=== PATIENT | female | born 1995 | race Caucasian/White ===

== ENCOUNTER 2019-05-04 16:41 | Emergency (ER) | payer OTHER, SELFPAY ==
[2019-05-04 17:44] LABS: Barbiturates NEGATIVE (NEGATIVE); Benzodiazepines NEGATIVE (NEGATIVE); Cocaine NEGATIVE (NEGATIVE); METHAMPHETAM NEGATIVE (NEGATIVE); Methadone NEGATIVE (NEGATIVE); Opiates NEGATIVE (NEGATIVE); Phencyclidine NEGATIVE (NEGATIVE); THC Cannibis NEGATIVE (NEGATIVE)
[2019-05-04 17:50] LABS: Absolute Lymphocytes (CBC) 2.9 K/uL (0.7-4.9); Basophils % 0.8 % (0-1.3); Eosinophils % 0.6 % (0-4.4); Hematocrit 40.1 % (36.0-45.0); Lymphocytes % 29.2 % (15.3-44.8); MPV 7.6 fL (7.6-11.3); Monocytes % 5.7 % (3.3-12.3); RBC Red Blood Cell Count 4.26 M/uL (3.86-4.86)
[2019-05-04 17:59] LABS: Protime INR 1.07
[2019-05-04 18:02] LABS: Urine Blood TRACE (NEG); Urine Glucose NEGATIVE (NEG); Urine Protein 2+ (NEG); Urine Specific Gravity >1.030 (1.005-1.030)
[2019-05-04 18:03] LABS: Urine Specific Gravity >1.030 (1.005-1.030)
[2019-05-04 18:11] LABS: ALT/SGPT 19 U/L (12-78); AST/SGOT 20 U/L (15-37); Albumin 4.4 g/dL (3.4-5.0); Alkaline Phosphatase 83 U/L (45-117); BUN Blood Urea Nitrogen 10 mg/dL (7-18); Bicarbonate 24 mmol/L (21-32); Bilirubin Direct 0.1 mg/dL (0-0.2); Bilirubin Total 0.4 mg/dL (0.2-1.0); Glucose Level 99 mg/dL (74-106); Potassium 3.5 mmol/L (3.5-5.1); Protein, Total 8.2 g/dL (6.4-8.2); Sodium Level 141 mmol/L (136-145)
[2019-05-04] MEDS ORDERED: DIAZEPAM 2 MG TABLET ONE (19:34)
--- NOTE | 2019-05-04 20:07 | ER ---
Nurse's Notes [facility] Name: Charo Flood Age: 24 yrs Sex: Female : 1995 Arrival Date: 05/04/2019 Time: 16:42 Bed 17 Private MD: Diagnosis: Acute stress reaction Presentation: 05/04 17:00 Presenting complaint: "I am feeling depressed and anxious and like I am a burden on my hb family, I am not feeling suicidal right now but I think I need help to get leveled out before it gets that bad.' Denies SI/HI at this time. Reports one previous suicide attempts 6 yrs ago by overdose. Transition of care: patient was not received from another setting of care. Onset of symptoms was May 04, 2019. Risk Assessment: Do you want to hurt yourself or someone else? Patient reports no desire to harm self or others. Initial Sepsis Screen: Does the patient meet any 2 criteria? No. Patient's initial sepsis screen is negative. Does the patient have a suspected source of infection? No. Patient's initial sepsis screen is negative. Care prior to arrival: None. 17:00 Method Of Arrival: Ambulatory 17:00 Acuity: LEMUEL 3 hb Historical: - Allergies: 17:06 Morphine (Vomiting); hb - PMHx: 17:06 Depression; Anxiety; hb - PSHx: 17:06 hand; hb - Immunization history:: Adult Immunizations up to date. - Social history:: Smoking status: Patient uses tobacco products, smokes one pack cigarettes per day. Patient/guardian denies using alcohol, street drugs. - Ebola Screening: : No symptoms or risks identified at this time. Screenin:20 Abuse screen: Denies threats or abuse. Nutritional screening: No deficits noted. em Tuberculosis screening: No symptoms or risk factors identified. Fall Risk None identified. Assessment: 17:20 General: Appears in no apparent distress. comfortable, Behavior is calm, cooperative, em reports feeling anxious, has been smoking K2 (synthetic marijuana) but not for 2 days, denies being SI/HI, wants help before she becomes suicidal . Pain: Denies pain. Neuro: Level of Consciousness is awake, alert, obeys commands, Oriented to person, place, time, situation. Cardiovascular: Capillary refill < 3 seconds Patient's skin is warm and dry. Respiratory: Airway is patent Respiratory effort is even, unlabored, Respiratory pattern is regular, symmetrical. GI: Abdomen is flat. Derm: Skin is intact, is healthy with good turgor, Skin is pink, warm \\T\\ dry. Musculoskeletal: Capillary refill < 3 seconds, Range of motion: intact in all extremities. 17:40 Reassessment: Patient appears in no apparent distress at this time. I agree with above iw assessment by Mayo Ziegler LVN. 18:20 Reassessment: Patient appears in no apparent distress at this time. Patient and/or em family updated on plan of care and expected duration. Pain level reassessed. Patient is alert, oriented x 3, equal unlabored respirations, skin warm/dry/pink. 19:46 Reassessment: Patient is alert, oriented x 3, equal unlabored respirations, skin ak1 warm/dry/pink. General: Appears in no apparent distress. comfortable, Behavior is calm, cooperative. Pain: Denies pain. Neuro: Level of Consciousness is awake, alert, obeys commands, Oriented to person, place, time, situation. Cardiovascular: No deficits noted. Respiratory: No deficits noted. GI: No signs and/or symptoms were reported involving the gastrointestinal system. : No signs and/or symptoms were reported regarding the genitourinary system. EENT: No signs and/or symptoms were reported regarding the EENT system. Derm: No signs and/or symptoms reported regarding the dermatologic system. Musculoskeletal: No signs and/or symptoms reported regarding the musculoskeletal system. 20:02 Reassessment: pt stated the Valium helped her anxiety. pt stated she feels comfortably ak1 going home with her who is at the bedside. pt again denies SI/HI. Psych: 19:47 Subjective: Patient's mood is sad. Objective: Patient is cooperative. Suicide Risk ak1 Assessment: Sad Person Scale: Sex of patient: Female: Score 0 points. Age of patient: Score 1 point if patient 15-34. Depression: Score 1 point if signs of depression are present. Previous Attempt: Score 1 point if patient has previously attempted suicide. Substance Abuse: Score 1 point if patient abuses alcohol or drugs. Rational Thinking: Score 0 point if patient has rational thinking. Social Support: Score 0 if social support is present/available. Organized Plan: Score 0 if patient did not have an organized plan in place. Vital Signs: 16:59 BP 140 / 94; Pulse 87; Resp 16; Temp 98.2; Pulse Ox 100% on R/A; Weight 52.16 kg; hb Height 5 ft. 2 in. (157.48 cm); Pain 0/10; 18:20 BP 132 / 78; Pulse 78; Resp 16; Pulse Ox 99% on R/A; em 20:03 BP 117 / 75; Pulse 75; Resp 16; Temp 97.9(O); Pulse Ox 100% on R/A; ag4 16:59 Body Mass Index 21.03 (52.16 kg, 157.48 cm) hb ED Course: 16:42 Patient arrived in ED. mr 17:03 Triage completed. hb 17:03 Arm band placed on. EKG completed in triage. Results shown to MD. EKG completed in hb triage. Results shown to MD. 17:08 David Gray, SENIOR IOS DEVELOPER is PHCP. pm1 17:08 Cameron Kent MD is Attending Physician. pm1 17:11 Mayo Ziegler LVN is Primary Nurse. em 17:20 Patient has correct armband on for positive identification. Bed in low position. Call em light in reach. Side rails up X2. 18:03 Initial lab(s) drawn, by me, sent to lab. Urine collected: clean catch specimen, jerrica cloudy, katy colored. Inserted saline lock: 22 gauge in right antecubital area, using aseptic technique. Blood collected. 20:03 No provider procedures requiring assistance completed. ak1 20:06 IV discontinued, intact, bleeding controlled, No redness/swelling at site. Pressure ak1 dressing applied. Administered Medications: 19:25 Drug: Valium 2 mg Route: PO; ak1 20:07 Follow up: Response: No adverse reaction; Anxiety decreased ak1 Outcome: 20:01 Discharge ordered by MD. pm1 20:06 Discharged to home ambulatory, with family. ak1 20:06 Condition: good 20:06 Discharge instructions given to patient, family, Instructed on discharge instructions, follow up and referral plans. no drinking with medication, no driving heavy equipment, medication usage, safe sex practices, control, Demonstrated understanding of instructions, follow-up care, medications, Prescriptions given X 1. 20:07 Patient left the ED. ak1 Signatures: Marvin Adams jb1 Teresita Tom mr Ziegler, Mayo, POLICEWOMAN POLICEWOMAN Kiah Castro, RN RN iw [place], [place], RN RN ak1 David Gray, SENIOR IOS DEVELOPER SENIOR IOS DEVELOPER [email or web address] Yesi Bragg, RN RN shefali Limon, Micky ag4
--- NOTE | 2019-05-04 20:07 | EDPHYS ---
Physician Documentation [facility] Name: Charo Flood Age: 24 yrs Sex: Female : 1995 Arrival Date: 05/04/2019 Time: 16:42 Bed 17 Private MD: ED Physician Cameron Kent HPI: 05/04 17:24 This 24 yrs old Female presents to ER via Ambulatory with complaints of Psych pm1 Problem. 17:24 The patient presents to the emergency department with anxiety, depression. pm1 17:24 Onset: The symptoms/episode began/occurred 3 day(s) ago. Past psychiatric history: pm1 Psychiatric medications include: stopped taking Lexapro about 1 year ago. [place] good with CBT but has not gone to it about 1 year ago, the patient has a previous inpatient psychiatric history, 6 year(s) ago. Associated signs and symptoms: The patient has no apparent associated signs or symptoms, Pertinent positives; anxiety, depression, uses K2 synthetic marijuana, Pertinent negatives: hallucinations, homicidal ideation, suicide ideation. Severity of symptoms: in the emergency department the symptoms are worse. The patient has not recently seen a physician. Historical: - Allergies: 17:06 Morphine (Vomiting); hb - PMHx: 17:06 Depression; Anxiety; hb - PSHx: 17:06 hand; hb - Immunization history:: Adult Immunizations up to date. - Social history:: Smoking status: Patient uses tobacco products, smokes one pack cigarettes per day. Patient/guardian denies using alcohol, street drugs. - Ebola Screening: : No symptoms or risks identified at this time. ROS: 17:24 Constitutional: Negative for fever, chills, and weight loss, Eyes: Negative for injury, pm1 pain, redness, and discharge, ENT: Negative for injury, pain, and discharge, Neck: Negative for injury, pain, and swelling, Cardiovascular: Negative for chest pain, palpitations, and edema, Respiratory: Negative for shortness of breath, cough, wheezing, and pleuritic chest pain, Abdomen/GI: Negative for abdominal pain, nausea, vomiting, diarrhea, and constipation, Back: Negative for injury and pain, MS/Extremity: Negative for injury and deformity, Skin: Negative for injury, rash, and discoloration. 17:24 Neuro: Negative for headache, weakness, numbness, tingling, and seizure. 17:24 Psych: Positive for anxiety, depression, Negative for auditory hallucinations, visual hallucinations, suicidal ideation. Exam: 17:24 Constitutional: This is a well developed, well nourished patient who is awake, alert, pm1 and in no acute distress. Head/Face: Normocephalic, atraumatic. Eyes: Pupils equal round and reactive to light, extra-ocular motions intact. Lids and lashes normal. Conjunctiva and sclera are non-icteric and not injected. Cornea within normal limits. Periorbital areas with no swelling, redness, or edema. ENT: Nares patent. No nasal discharge, no septal abnormalities noted. Tympanic membranes are normal and external auditory canals are clear. Oropharynx with no redness, swelling, or masses, exudates, or evidence of obstruction, uvula midline. Mucous membranes moist. Neck: Trachea midline, no thyromegaly or masses palpated, and no cervical lymphadenopathy. Supple, full range of motion without nuchal rigidity, or vertebral point tenderness. No Meningismus. Chest/axilla: Normal chest wall appearance and motion. Nontender with no deformity. No lesions are appreciated. Cardiovascular: Regular rate and rhythm with a normal S1 and S2. No gallops, murmurs, or rubs. Normal PMI, no JVD. No pulse deficits. Respiratory: Lungs have equal breath sounds bilaterally, clear to auscultation and percussion. No rales, rhonchi or wheezes noted. No increased work of breathing, no retractions or nasal flaring. Abdomen/GI: Soft, non-tender, with normal bowel sounds. No distension or tympany. No guarding or rebound. No evidence of tenderness throughout. Back: No spinal tenderness. No costovertebral tenderness. Full range of motion. Skin: Warm, dry with normal turgor. Normal color with no rashes, no lesions, and no evidence of cellulitis. MS/ Extremity: Pulses equal, no cyanosis. Neurovascular intact. Full, normal range of motion. 17:24 Neuro: Orientation: is normal, Motor: is normal, moves all fours, Sensation: is normal, no obvious gross deficits. 17:24 Psych: Behavior/mood is pleasant, cooperative, Affect is calm, Oriented to person, place, time, Patient has no thoughts/intents to harm self or others. Delusions/hallucinations are not present. Vital Signs: 16:59 BP 140 / 94; Pulse 87; Resp 16; Temp 98.2; Pulse Ox 100% on R/A; Weight 52.16 kg; hb Height 5 ft. 2 in. (157.48 cm); Pain 0/10; 18:20 BP 132 / 78; Pulse 78; Resp 16; Pulse Ox 99% on R/A; em 20:03 BP 117 / 75; Pulse 75; Resp 16; Temp 97.9(O); Pulse Ox 100% on R/A; ag4 16:59 Body Mass Index 21.03 (52.16 kg, 157.48 cm) hb MDM: 17:11 Patient medically screened. pm1 19:25 Data reviewed: vital signs. Data interpreted: Pulse oximetry: on room air is 99 %. pm1 Interpretation: normal. Counseling: I had a detailed discussion with the patient and/or guardian regarding: the historical points, exam findings, and any diagnostic results supporting the discharge/admit diagnosis, lab results, radiology results, the need for outpatient follow up, a psychiatrist, to return to the emergency department if symptoms worsen or persist or if there are any questions or concerns that arise at home. 05/04 17:18 Order name: Acetaminophen; Complete Time: 18:44 pm1 05/04 17:18 Order name: Basic Metabolic Panel; Complete Time: 18:44 pm1 05/04 17:18 Order name: CBC with Diff; Complete Time: 18:44 pm1 05/04 17:18 Order name: ETOH Level; Complete Time: 18:44 pm1 05/04 17:18 Order name: Hepatic Function; Complete Time: 18:44 pm1 05/04 17:18 Order name: PT-INR; Complete Time: 18:44 pm1 05/04 17:18 Order name: Urine Test (obtain specimen); Complete Time: 18:03 pm1 05/04 17:18 Order name: Ptt, Activated; Complete Time: 18:44 pm1 05/04 17:18 Order name: Salicylate; Complete Time: 18:44 pm1 05/04 17:18 Order name: Urine Drug Screen; Complete Time: 17:59 pm1 05/04 17:18 Order name: EKG; Complete Time: 17:20 pm1 05/04 17:26 Order name: Urine --Ancillary (enter results); Complete Time: 18:05 [facility] 05/04 17:45 Order name: Urine Dipstick--Ancillary (enter results); Complete Time: 18:05 [facility] 05/04 17:18 Order name: EKG - Nurse/Tech; Complete Time: 18:03 pm1 05/04 17:18 Order name: IV Saline Lock; Complete Time: 18:03 pm1 05/04 17:18 Order name: Labs collected and sent; Complete Time: 18:03 pm1 05/04 17:18 Order name: Urine Dipstick-Ancillary (obtain specimen); Complete Time: 18:03 pm1 EC:54 Rate is 64 beats/min. Rhythm is regular, Sinus Rhythm with 1st degree heart block. No Q pm1 waves. T waves are Normal. No ST changes noted. Clinical impression: 1st degree heart block. Administered Medications: 19:25 Drug: Valium 2 mg Route: PO; ak1 20:07 Follow up: Response: No adverse reaction; Anxiety decreased ak1 Disposition: 05/04/19 20:01 Discharged to Home. Impression: Acute stress reaction. - Condition is Stable. - Discharge Instructions: Stress and Stress Management. - Prescriptions for Valium 2 mg Oral Tablet - take 1 tablet by ORAL route every 8 hours As needed; 6 tablet. - Medication Reconciliation Form, Thank You Letter, Antibiotic Education, Prescription Opioid Use form. - Follow up: Private Physician; When: 2 - 3 days; Reason: Recheck today's complaints, Continuance of care, Re-evaluation by your physician. Follow up: Emergency Department; When: As needed; Reason: Worsening of condition. - Problem is new. - Symptoms have improved. Addendum: 05/09/2019 16:37 Co-signature as Attending Physician, Cameron Kent MD I agree with the assessment and c tamez plan of care. Signatures: Dispatcher [employer] EDIA Cameron Kent MD MD cha Krenek, Amber, RN RN ak1 David Gray, ABDIEL PIT CRANE OPERATOR pm1 Yesi Bragg, ANDERSON RN Corrections: (The following items were deleted from the chart) 05/04 20:07 20:01 05/04/2019 20:01 Discharged to Home. Impression: Acute stress reaction. Condition ak1 is Stable. Discharge Instructions: Stress and Stress Management. Prescriptions for Valium 2 mg Oral Tablet - take 1 tablet by ORAL route every 8 hours As needed; 20 tablet. and Forms are Medication Reconciliation Form, Thank You Letter, Antibiotic Education, Prescription Opioid Use. Follow up: Private Physician; When: 2 - 3 days; Reason: Recheck today's complaints, Continuance of care, Re-evaluation by your physician. Follow up: Emergency Department; When: As needed; Reason: Worsening of condition. Problem is new. Symptoms have improved. pm1
[2019-05-04 20:37] VITALS: BP 117/75; TEMP 97.9; O2SAT 100
--- NOTE | 2019-05-06 08:45 | EKG ---
Test Date: 2019-05-04 Test Time: 17:44:08 Wide Area Network Engineer: WHITNEY MEASUREMENT RESULTS: Intervals: Rate: 64 UT: 236 QRSD: 72 QT: 386 QTc: 398 Latta: P: 39 UT: 236 QRS: 77 T: 39 INTERPRETIVE STATEMENTS: Sinus rhythm with 1st degree AV block Otherwise normal ECG Compared to ECG 04/07/2015 16:20:23 First degree AV block now present Electronically Signed On 05-06-19 08:42:39 CDT by Osei Yung
== END 2019-05-04 20:07 | disposition home or self-care (01) ==
LOC: ER 16:41
DX: F43.0 Acute stress reaction (principal); F32.9 Major depressive disorder, single episode, unspecified; F17.210 Nicotine dependence, cigarettes, uncomplicated; Z88.5 Allergy status to narcotic agent
CPT/HCPCS: 36415; 80048; 80076; 80307; 80320; 80329; 81003; 81025; 85025; 85610; 85730; 93005; 99284

== ENCOUNTER 2019-09-16 23:13 | Emergency (ER) | payer SELFPAY ==
--- OUTSIDE RECORDS SUMMARY | 2019-09-16 23:15 | XMS REPORT ---
:1995 [facility] Organization [facility] Address [address] [place] [address] Care Team Providers Name Role Phone Unavailable Unavailable Unavailable Payers Payer Name Policy Type Policy Number Effective Date Expiration Date Problems This patient has no known problems. Allergies, Adverse Reactions, Alerts Allergy Allergy Status Severity Reaction(s) Onset Inactive Treating Comments Name Type Date Date Clinician morphine DA Active MO 2019-07 00:00:0 0 Medications This patient has no known medications. Results Test Description Test Time Test Comments Text Results Atomic Results Result Comments BASIC METABOLIC PANEL 2019-08-02 04:11:00 Test Item Value Reference Range Comments SODIUM (test code=NA) 140 mmol/L 134-147 POTASSIUM (test code=K) 4.2 mmol/L 3.4-5.0 CHLORIDE (test code=CL) 108 mmol/L 100-108 CARBON DIOXIDE (test code=CO2) 28 mmol/L 21-32 ANION GAP (test code=GAP) 4.0 GAP calc 4.0-15.0 GLUCOSE (test code=GLU) 87 MG/DL 70-110 BLOOD UREA NITROGEN (test code=BUN) 6 MG/DL 7-18 GLOMERULAR FILTRATION RATE (test code=GFR) >=60 max estimate estGFR >60 CREATININE (test code=CREAT) 0.6 MG/DL 0.6-1.0 CALCIUM (test code=CA) 8.7 MG/DL 8.5-10.1 CREATINE KINASE (CK)2019-08-02 04:11:00 Test Item Value Reference Range Comments CREATINE KINASE (CK) (test code=CK) 754 Unit/L 26-192 CBC W/AUTO [id number] 03:59:00 Test Item Value Reference Range Comments WHITE BLOOD CELL (test code=WBC) 9.1 K/mm3 3.5-11.0 RED BLOOD CELL (test code=RBC) 3.53 M/mm3 4.70-6.10 HEMOGLOBIN (test code=HGB) 11.2 G/DL 10.4-14.9 HEMATOCRIT (test code=HCT) 33.7 % 31.5-44.1 MEAN CELL VOLUME (test code=MCV) 95.5 Fl 84.5-98.6 MEAN CELL HGB (test code=MCH) 31.7 pg 27.0-34.2 MEAN CELL HGB CONCETRATION (test code=MCHC) 33.2 G/DL 31.5-34.0 RED CELL DISTRIBUTION WIDTH (test code=RDW) 13.5 SD 11.5-14.5 PLATELET COUNT (test code=PLT) 345.0 K/mm3 150-450 MEAN PLATELET VOLUME (test code=MPV) 9.20 fL 7.0-10.5 NEUTROPHIL % (test code=NT%) 54.5 % 40-76 LYMPHOCYTE % (test code=LY%) 35.1 % 20.5-51.1 MONOCYTE % (test code=MO%) 8.7 % 1.7-9.3 EOSINOPHIL % (test code=EO%) 1.4 % 0.0-6.0 BASOPHIL % (test code=BA%) 0.3 % 0.0-2.0 NEUTROPHIL # (test code=NT#) 4.94 K/mm3 1.8-7.6 LYMPHOCYTE # (test code=LY#) 3.2 K/mm3 0.6-3.2 MONOCYTE # (test code=MO#) 0.8 K/mm3 0.3-1.1 EOSINOPHIL # (test code=EO#) 0.1 K/mm3 0.0-0.4 BASOPHIL # (test code=BA#) 0.0 K/mm3 0.0-0.1 MANUAL DIFF REQUIRED (test code=MDIFF) NO DIFF/SCN CRITERIA BASIC METABOLIC [id number] 04:28:00 Test Item Value Reference Range Comments SODIUM (test code=NA) 139 mmol/L 134-147 POTASSIUM (test code=K) 4.0 mmol/L 3.4-5.0 CHLORIDE (test code=CL) 108 mmol/L 100-108 CARBON DIOXIDE (test code=CO2) 26 mmol/L 21-32 ANION GAP (test code=GAP) 5.0 GAP calc 4.0-15.0 GLUCOSE (test code=GLU) 95 MG/DL 70-110 BLOOD UREA NITROGEN (test code=BUN) 7 MG/DL 7-18 GLOMERULAR FILTRATION RATE (test >=60 max estimate estGFR >60 code=GFR) CREATININE (test code=CREAT) 0.7 MG/DL 0.6-1.0 CALCIUM (test code=CA) 8.7 MG/DL 8.5-10.1 CREATINE KINASE (CK)2019-08-01 04:28:00 Test Item Value Reference Range Comments CREATINE KINASE (CK) (test code=CK) 1502 Unit/L 26-192 CBC W/AUTO [id number] 03:56:00 Test Item Value Reference Range Comments WHITE BLOOD CELL (test code=WBC) 11.4 K/mm3 3.5-11.0 RED BLOOD CELL (test code=RBC) 3.61 M/mm3 4.70-6.10 HEMOGLOBIN (test code=HGB) 11.3 G/DL 10.4-14.9 HEMATOCRIT (test code=HCT) 35.0 % 31.5-44.1 MEAN CELL VOLUME (test code=MCV) 97.0 Fl 84.5-98.6 MEAN CELL HGB (test code=MCH) 31.3 pg 27.0-34.2 MEAN CELL HGB CONCETRATION (test code=MCHC) 32.3 G/DL 31.5-34.0 RED CELL DISTRIBUTION WIDTH (test code=RDW) 13.6 SD 11.5-14.5 PLATELET COUNT (test code=PLT) 364.0 K/mm3 150-450 MEAN PLATELET VOLUME (test code=MPV) 9.10 fL 7.0-10.5 NEUTROPHIL % (test code=NT%) 58.3 % 40-76 LYMPHOCYTE % (test code=LY%) 33.2 % 20.5-51.1 MONOCYTE % (test code=MO%) 7.1 % 1.7-9.3 EOSINOPHIL % (test code=EO%) 1.1 % 0.0-6.0 BASOPHIL % (test code=BA%) 0.3 % 0.0-2.0 NEUTROPHIL # (test code=NT#) 6.63 K/mm3 1.8-7.6 LYMPHOCYTE # (test code=LY#) 3.8 K/mm3 0.6-3.2 MONOCYTE # (test code=MO#) 0.8 K/mm3 0.3-1.1 EOSINOPHIL # (test code=EO#) 0.1 K/mm3 0.0-0.4 BASOPHIL # (test code=BA#) 0.0 K/mm3 0.0-0.1 MANUAL DIFF REQUIRED (test code=MDIFF) NO DIFF/SCN CRITERIA CREATINE KINASE (CK)2019-07-31 22:36:00 Test Item Value Reference Range Comments CREATINE KINASE (CK) (test code=CK) 1566 Unit/L 26-192 CREATINE KINASE (CK)2019-07-31 12:47:00 Test Item Value Reference Range Comments CREATINE KINASE (CK) (test code=CK) 1265 Unit/L 26-192 CBC W/AUTO [id number] 12:21:00 Test Item Value Reference Range Comments WHITE BLOOD CELL (test code=WBC) 12.1 K/mm3 3.5-11.0 RED BLOOD CELL (test code=RBC) 4.01 M/mm3 4.70-6.10 HEMOGLOBIN (test code=HGB) 12.6 G/DL 10.4-14.9 HEMATOCRIT (test code=HCT) 38.5 % 31.5-44.1 MEAN CELL VOLUME (test code=MCV) 96.0 Fl 84.5-98.6 MEAN CELL HGB (test code=MCH) 31.4 pg 27.0-34.2 MEAN CELL HGB CONCETRATION (test code=MCHC) 32.7 G/DL 31.5-34.0 RED CELL DISTRIBUTION WIDTH (test code=RDW) 13.6 SD 11.5-14.5 PLATELET COUNT (test code=PLT) 399.0 K/mm3 150-450 MEAN PLATELET VOLUME (test code=MPV) 8.80 fL 7.0-10.5 NEUTROPHIL % (test code=NT%) 66.1 % 40-76 LYMPHOCYTE % (test code=LY%) 27.0 % 20.5-51.1 MONOCYTE % (test code=MO%) 6.0 % 1.7-9.3 EOSINOPHIL % (test code=EO%) 0.7 % 0.0-6.0 BASOPHIL % (test code=BA%) 0.2 % 0.0-2.0 NEUTROPHIL # (test code=NT#) 7.98 K/mm3 1.8-7.6 LYMPHOCYTE # (test code=LY#) 3.3 K/mm3 0.6-3.2 MONOCYTE # (test code=MO#) 0.7 K/mm3 0.3-1.1 EOSINOPHIL # (test code=EO#) 0.1 K/mm3 0.0-0.4 BASOPHIL # (test code=BA#) 0.0 K/mm3 0.0-0.1 MANUAL DIFF REQUIRED (test code=MDIFF) NO DIFF/SCN CRITERIA UA RFLX MICR CULT IF [id number] 15:29:00 Test Item Value Reference Range Comments UA COLOR (test code=COLU) YELLOW discript YEL/STRAW UA APPEARANCE (test code=APPU) HAZY discript CLEAR UA GLUCOSE DIPSTICK (test code=DGLUU) NEGATIVE mg/dL NEG UA BILIRUBIN DIPSTICK (test code=BILU) 1+ mg/dL NEG UA KETONE DIPSTICK (test code=KETU) TRACE mg/dL NEG UA SPECIFIC GRAVITY (test code=SGU) >=1.030 SG 1.005-1.030 UA BLOOD DIPSTICK (test code=MICHA) TRACE mg/DL NEG UA PH DIPSTICK (test code=TAMMY) 5.5 pH UNITS 5.0-7.0 UA PROTEIN DIPSTICK (test code=PROU) 1+ mg/dL NEG UA UROBILINIOGEN DIPSTICK (test 0.2 mg/dL <2.0 code=URO) UA NITRITE DIPSTICK (test code=RUPERT) NEGATIVE SCREEN NEG UA LEUKOCYTE ESTERASE DIPSTICK (test TRACE Leuk/mcL NEGATIVE code=LEUU) UA WBC (test code=WBCU) 1-3 #WBC/HPF 0-3 UA RBC (test code=RBCU) 1-3 #RBC/HPF 0-3 UA BACTERIA (test code=BACU) TRACE /HPF NONE-TRACE UA SQUAMOUS CELLS (test code=SQU) TRACE /HPF NONE UA CALCIUM OXALATE CRYSTALS (test TRACE /HPF NONE SEEN code=CAOXU) UA MUCUS (test code=MUCU) 1+ /LPF NONE SEEN UA CULTURE NEEDED? (test code=UACULT) NO, WBC<10 Criteria Culture CHK SOURCE OF URINE: CLEAN CATCHIndication for culture: Delirium-if no other srcDRUGS OF ABUSE SCREEN [id number] 15:29:00 Test Item Value Reference Range Comments URN COCAINE (test code=COCAURN) NEGATIVE SCcutoff <300 NG/ML URN CANNABINOIDS (test code=CANNABURN) POSITIVE SCcutoff <50 NG/ML URN AMPHETAMINE (test code=AMPHETURN) NEGATIVE SCcutoff <1000 NG/ML URN BARBITURATE (test code=BARBITURN) NEGATIVE SCcutoff <200 NG/ML URN BENZODIAZEPINE (test code=BENZOURN) NEGATIVE SCcutoff <200 NG/ML URN OPIATES (test code=OPIATURN) NEGATIVE SCcutoff <2000 NG/ML URN PHENCYCLIDINE (PCP) (test NEGATIVE SCcutoff <25 NG/ML code=PHENCURN) URN METHADONE (test code=METHAURN) NEGATIVE SCcutoff <300 NG/ML SOURCE OF URINE: CLEAN CATCHIndication for culture: Delirium-if no other srcUA RFLX MICR CULT IF [id number] 14:54:00 Test Item Value Reference Range Comments UA COLOR (test code=COLU) YELLOW discript YEL/STRAW UA APPEARANCE (test code=APPU) HAZY discript CLEAR UA GLUCOSE DIPSTICK (test code=DGLUU) NEGATIVE mg/dL NEG UA BILIRUBIN DIPSTICK (test code=BILU) 1+ mg/dL NEG UA KETONE DIPSTICK (test code=KETU) TRACE mg/dL NEG UA SPECIFIC GRAVITY (test code=SGU) >=1.030 SG 1.005-1.030 UA BLOOD DIPSTICK (test code=MICHA) TRACE mg/DL NEG UA PH DIPSTICK (test code=TAMMY) 5.5 pH UNITS 5.0-7.0 UA PROTEIN DIPSTICK (test code=PROU) 1+ mg/dL NEG UA UROBILINIOGEN DIPSTICK (test code=URO) 0.2 mg/dL <2.0 UA NITRITE DIPSTICK (test code=RUPERT) NEGATIVE SCREEN NEG UA LEUKOCYTE ESTERASE DIPSTICK (test TRACE Leuk/mcL NEGATIVE code=LEUU) UA WBC (test code=WBCU) 1-3 #WBC/HPF 0-3 UA RBC (test code=RBCU) 1-3 #RBC/HPF 0-3 UA BACTERIA (test code=BACU) TRACE /HPF NONE-TRACE UA SQUAMOUS CELLS (test code=SQU) TRACE /HPF NONE UA CALCIUM OXALATE CRYSTALS (test TRACE /HPF NONE SEEN code=CAOXU) UA MUCUS (test code=MUCU) 1+ /LPF NONE SEEN UA CULTURE NEEDED? (test code=UACULT) Criteria Culture CHK SOURCE OF URINE: CLEAN CATCHIndication for culture: Delirium-if no other srcDRUGS OF ABUSE SCREEN [id number] 14:54:00 Test Item Value Reference Range Comments URN COCAINE (test code=COCAURN) NEGATIVE SCcutoff <300 NG/ML URN CANNABINOIDS (test code=CANNABURN) POSITIVE SCcutoff <50 NG/ML URN AMPHETAMINE (test code=AMPHETURN) NEGATIVE SCcutoff <1000 NG/ML URN BARBITURATE (test code=BARBITURN) NEGATIVE SCcutoff <200 NG/ML URN BENZODIAZEPINE (test code=BENZOURN) NEGATIVE SCcutoff <200 NG/ML URN OPIATES (test code=OPIATURN) NEGATIVE SCcutoff <2000 NG/ML URN PHENCYCLIDINE (PCP) (test NEGATIVE SCcutoff <25 NG/ML code=PHENCURN) URN METHADONE (test code=METHAURN) NEGATIVE SCcutoff <300 NG/ML SOURCE OF URINE: CLEAN CATCHIndication for culture: Delirium-if no other srcBASIC METABOLIC [id number] 14:36:00 Test Item Value Reference Range Comments SODIUM (test code=NA) 139 mmol/L 134-147 POTASSIUM (test code=K) 4.0 mmol/L 3.4-5.0 CHLORIDE (test code=CL) 108 mmol/L 100-108 CARBON DIOXIDE (test code=CO2) 26 mmol/L 21-32 ANION GAP (test code=GAP) 5.0 GAP calc 4.0-15.0 GLUCOSE (test code=GLU) 103 MG/DL 70-110 BLOOD UREA NITROGEN (test code=BUN) 8 MG/DL 7-18 GLOMERULAR FILTRATION RATE (test >=60 max estimate estGFR >60 code=GFR) CREATININE (test code=CREAT) 0.9 MG/DL 0.6-1.0 CALCIUM (test code=CA) 9.3 MG/DL 8.5-10.1 Last Dose Date: 07/17/19 Dose Time: 1401HEPATIC FUNCTION [id number] 14: 36:00 Test Item Value Reference Range Comments TOTAL PROTEIN (test code=PROT) 8.3 G/DL 6.4-8.2 ALBUMIN (test code=ALB) 4.4 G/DL 3.4-5.0 BILIRUBIN TOTAL (test code=BILT) 0.50 MG/DL 0.2-1.2 BILIRUBIN DIRECT (test code=BILD) 0.10 MG/DL 0.00-0.30 BILIRUBIN INDIRECT (test code=BILIND) 0.40 MG/DL 0.2-1.2 SGOT/AST (test code=AST) 32 Unit/L 15-37 SGPT/ALT (test code=ALT) 29 Unit/L 12-78 ALKALINE PHOSPHATASE TOTAL (test code=ALKP) 105 Unit/L 45-117 Last Dose Date: 07/17/19 Dose Time: REATINE KINASE (CK)2019-07-30 14:36 :00 Test Item Value Reference Range Comments CREATINE KINASE (CK) (test code=CK) 778 Unit/L 26-192 Last Dose Date: 07/17/19 Dose Time: [id number] 14:36:00 Test Item Value Reference Range Comments ACETAMINOPHEN (test code=ACET) < 2.0 mcG/ML 10.0-30.0 Last Dose Date: 07/17/19 Dose Time: [id number] 14:36:00 Test Item Value Reference Range Comments ALCOHOL (test code=ALC) < 3 MG/DL 0-10 Last Dose Date: 07/17/19 Dose Time: [id number] 14:32:00 Test Item Value Reference Range Comments SALICYLATE (test code=CANDACE) 5.7 MG/DL 2.8-20.0 THER UA RFLX MICR CULT IF [id number] 14:32:00 Test Item Value Reference Range Comments UA COLOR (test code=COLU) YELLOW discript YEL/STRAW UA APPEARANCE (test code=APPU) HAZY discript CLEAR UA GLUCOSE DIPSTICK (test code=DGLUU) NEGATIVE mg/dL NEG UA BILIRUBIN DIPSTICK (test code=BILU) 1+ mg/dL NEG UA KETONE DIPSTICK (test code=KETU) TRACE mg/dL NEG UA SPECIFIC GRAVITY (test code=SGU) >=1.030 SG 1.005-1.030 UA BLOOD DIPSTICK (test code=MICHA) TRACE mg/DL NEG UA PH DIPSTICK (test code=TAMMY) 5.5 pH UNITS 5.0-7.0 UA PROTEIN DIPSTICK (test code=PROU) 1+ mg/dL NEG UA UROBILINIOGEN DIPSTICK (test code=URO) 0.2 mg/dL <2.0 UA NITRITE DIPSTICK (test code=RUPERT) NEGATIVE SCREEN NEG UA LEUKOCYTE ESTERASE DIPSTICK (test TRACE Leuk/mcL NEGATIVE code=LEUU) UA CULTURE NEEDED? (test code=UACULT) Criteria Culture CHK SOURCE OF URINE: CLEAN CATCHIndication for culture: Delirium-if no other srcDRUGS OF ABUSE SCREEN [id number] 14:32:00 Test Item Value Reference Range Comments URN COCAINE (test code=COCAURN) NEGATIVE SCcutoff <300 NG/ML URN CANNABINOIDS (test code=CANNABURN) POSITIVE SCcutoff <50 NG/ML URN AMPHETAMINE (test code=AMPHETURN) NEGATIVE SCcutoff <1000 NG/ML URN BARBITURATE (test code=BARBITURN) NEGATIVE SCcutoff <200 NG/ML URN BENZODIAZEPINE (test code=BENZOURN) NEGATIVE SCcutoff <200 NG/ML URN OPIATES (test code=OPIATURN) NEGATIVE SCcutoff <2000 NG/ML URN PHENCYCLIDINE (PCP) (test NEGATIVE SCcutoff <25 NG/ML code=PHENCURN) URN METHADONE (test code=METHAURN) NEGATIVE SCcutoff <300 NG/ML SOURCE OF URINE: CLEAN CATCHIndication for culture: Delirium-if no other srcUA RFLX MICR CULT IF [id number] 14:17:00 Test Item Value Reference Range Comments UA COLOR (test code=COLU) YELLOW discript YEL/STRAW UA APPEARANCE (test code=APPU) HAZY discript CLEAR UA GLUCOSE DIPSTICK (test code=DGLUU) NEGATIVE mg/dL NEG UA BILIRUBIN DIPSTICK (test code=BILU) 1+ mg/dL NEG UA KETONE DIPSTICK (test code=KETU) TRACE mg/dL NEG UA SPECIFIC GRAVITY (test code=SGU) >=1.030 SG 1.005-1.030 UA BLOOD DIPSTICK (test code=MICHA) TRACE mg/DL NEG UA PH DIPSTICK (test code=TAMMY) 5.5 pH UNITS 5.0-7.0 UA PROTEIN DIPSTICK (test code=PROU) 1+ mg/dL NEG UA UROBILINIOGEN DIPSTICK (test code=URO) 0.2 mg/dL <2.0 UA NITRITE DIPSTICK (test code=RUPERT) NEGATIVE SCREEN NEG UA LEUKOCYTE ESTERASE DIPSTICK (test TRACE Leuk/mcL NEGATIVE code=LEUU) UA CULTURE NEEDED? (test code=UACULT) Criteria Culture CHK SOURCE OF URINE: CLEAN CATCHIndication for culture: Delirium-if no other srcDRUGS OF ABUSE SCREEN [id number] 14:17:00 Test Item Value Reference Range Comments URN COCAINE (test code=COCAURN) SCcutoff <300 NG/ML URN CANNABINOIDS (test code=CANNABURN) SCcutoff <50 NG/ML URN AMPHETAMINE (test code=AMPHETURN) SCcutoff <1000 NG/ML URN BARBITURATE (test code=BARBITURN) SCcutoff <200 NG/ML URN BENZODIAZEPINE (test code=BENZOURN) SCcutoff <200 NG/ML URN OPIATES (test code=OPIATURN) SCcutoff <2000 NG/ML URN PHENCYCLIDINE (PCP) (test code=PHENCURN) SCcutoff <25 NG/ML URN METHADONE (test code=METHAURN) SCcutoff <300 NG/ML SOURCE OF URINE: CLEAN CATCHIndication for culture: Delirium-if no other srcCBC W/AUTO [id number] 14:16:00 Test Item Value Reference Range Comments WHITE BLOOD CELL (test code=WBC) 15.7 K/mm3 3.5-11.0 RED BLOOD CELL (test code=RBC) 4.08 M/mm3 4.70-6.10 HEMOGLOBIN (test code=HGB) 13.0 G/DL 10.4-14.9 HEMATOCRIT (test code=HCT) 39.0 % 31.5-44.1 MEAN CELL VOLUME (test code=MCV) 95.6 Fl 84.5-98.6 MEAN CELL HGB (test code=MCH) 31.9 pg 27.0-34.2 MEAN CELL HGB CONCETRATION (test code=MCHC) 33.3 G/DL 31.5-34.0 RED CELL DISTRIBUTION WIDTH (test code=RDW) 13.7 SD 11.5-14.5 PLATELET COUNT (test code=PLT) 450.0 K/mm3 150-450 MEAN PLATELET VOLUME (test code=MPV) 8.90 fL 7.0-10.5 NEUTROPHIL % (test code=NT%) 79.0 % 40-76 LYMPHOCYTE % (test code=LY%) 15.9 % 20.5-51.1 MONOCYTE % (test code=MO%) 4.7 % 1.7-9.3 EOSINOPHIL % (test code=EO%) 0.1 % 0.0-6.0 BASOPHIL % (test code=BA%) 0.3 % 0.0-2.0 NEUTROPHIL # (test code=NT#) 12.40 K/mm3 1.8-7.6 LYMPHOCYTE # (test code=LY#) 2.5 K/mm3 0.6-3.2 MONOCYTE # (test code=MO#) 0.7 K/mm3 0.3-1.1 EOSINOPHIL # (test code=EO#) 0.0 K/mm3 0.0-0.4 BASOPHIL # (test code=BA#) 0.0 K/mm3 0.0-0.1 MANUAL DIFF REQUIRED (test code=MDIFF) NO DIFF/SCN CRITERIA
--- NOTE | 2019-09-16 23:33 | EDPHYS ---
Physician Documentation [facility] Name: Charo Flood Age: 24 yrs Sex: Female : 1995 Arrival Date: 09/16/2019 Time: 23:14 Bed 19 Private MD: ED Physician Segundo Ramos HPI: 09/16 23:33 This 24 yrs old Female presents to ER via EMS with complaints of snw stress/anxiety. 23:33 The patient presents to the emergency department with anxiety. Past psychiatric snw history: Prior diagnosis: bipolar disorder, Primary psychiatric physician: [facility] in [place], the patient has had a prior suicide gesture, where the patient took pills/meds, pt recently started new medication and has no complaints at this time. Associated signs and symptoms: The patient has no apparent associated signs or symptoms. Severity of symptoms: At their worst the symptoms were moderate in the emergency department the symptoms have resolved. The patient has experienced similar episodes in the past, multiple times. The patient has been recently seen by a physician: the patient's primary care provider. Pt states she is safe, denies SI, HI, need for intervention. Looking forward to next [facility] appt. 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 - Social history:: Smoking status: Patient uses tobacco products, smokes one pack cigarettes per day. Patient uses street drugs. - Ebola Screening: : Patient negative for fever greater than or equal to 101.5 degrees Fahrenheit, and additional compatible Ebola Virus Disease symptoms Patient denies exposure to infectious person. ROS: 23:33 Constitutional: Negative for fever, chills, and weight loss, Eyes: Negative for injury, snw pain, redness, and discharge, ENT: Negative for injury, pain, and discharge, Neck: Negative for injury, pain, and swelling, Cardiovascular: Negative for chest pain, palpitations, and edema, Respiratory: Negative for shortness of breath, cough, wheezing, and pleuritic chest pain, Abdomen/GI: Negative for abdominal pain, nausea, vomiting, diarrhea, and constipation, Back: Negative for injury and pain, : Negative for injury, bleeding, discharge, and swelling, MS/Extremity: Negative for injury and deformity, Skin: Negative for injury, rash, and discoloration, Neuro: Negative for headache, weakness, numbness, tingling, and seizure. 23:33 Psych: Positive for anxiety, Pt got mad at her significant other and tried her coping mechanism of leaving the situation. Pt went into another room to calm herself and the boyfriend followed. He thought she might be a harm to herself so the police and EMS were called. Pt denies SI, HI. States she was just working on her coping [facility]. Declines need for help at this time, declines reach out to [facility]. Pt states she is safe at home and wishes to go home.. Exam: 23:33 Constitutional: This is a well developed, well nourished patient who is awake, alert, snw and in no acute distress. Head/Face: Normocephalic, atraumatic. Eyes: Pupils equal round and reactive to light, extra-ocular motions intact. Lids and lashes normal. Conjunctiva and sclera are non-icteric and not injected. Cornea within normal limits. Periorbital areas with no swelling, redness, or edema. ENT: Nares patent. No nasal discharge, no septal abnormalities noted. Tympanic membranes are normal and external auditory canals are clear. Oropharynx with no redness, swelling, or masses, exudates, or evidence of obstruction, uvula midline. Mucous membranes moist. Neck: Trachea midline, no thyromegaly or masses palpated, and no cervical lymphadenopathy. Supple, full range of motion without nuchal rigidity, or vertebral point tenderness. No Meningismus. Chest/axilla: Normal chest wall appearance and motion. Nontender with no deformity. No lesions are appreciated. Cardiovascular: Regular rate and rhythm with a normal S1 and S2. No gallops, murmurs, or rubs. Normal PMI, no JVD. No pulse deficits. Respiratory: Lungs have equal breath sounds bilaterally, clear to auscultation and percussion. No rales, rhonchi or wheezes noted. No increased work of breathing, no retractions or nasal flaring. Abdomen/GI: Soft, non-tender, with normal bowel sounds. No distension or tympany. No guarding or rebound. No evidence of tenderness throughout. Back: No spinal tenderness. No costovertebral tenderness. Full range of motion. Skin: Warm, dry with normal turgor. Normal color with no rashes, no lesions, and no evidence of cellulitis. MS/ Extremity: Pulses equal, no cyanosis. Neurovascular intact. Full, normal range of motion. Neuro: Awake and alert, GCS 15, oriented to person, place, time, and situation. Cranial nerves II-XII grossly intact. Motor strength 5/5 in all extremities. Sensory grossly intact. Cerebellar exam normal. Normal gait. 23:33 Psych: Behavior/mood is pleasant, cooperative, appropriate for age, Affect is calm, Oriented to person, place, time, Patient has no thoughts/intents to harm self or others. Judgement / Insight is normal. Vital Signs: 23:22 BP 120 / 72; Pulse 85; Resp 16; Temp 98; Pulse Ox 100% ; Weight 54.43 kg; Height 5 ft. wh 2 in. (157.48 cm); 23:22 Body Mass Index 21.95 (54.43 kg, 157.48 cm) wh MDM: 23:17 Patient medically screened. snw 23:39 Data reviewed: vital signs, nurses notes. Data interpreted: Pulse oximetry: on room air snw is 100 %. Interpretation: normal. Counseling: I had a detailed discussion with the patient and/or guardian regarding: the historical points, exam findings, and any diagnostic results supporting the discharge/admit diagnosis, the need for outpatient follow up, to return to the emergency department if symptoms worsen or persist or if there are any questions or concerns that arise at home. Special discussion: Based on the history and exam findings, there is no indication for further emergent testing or inpatient evaluation. I discussed with the patient/guardian the need to see the primary care provider for further evaluation of the symptoms. I discussed with the patient/guardian the need to see the psychiatrist for further evaluation of the symptoms. Administered Medications: No medications were administered Disposition: 09/17 00:42 Co-signature as Attending Physician, Segundo Ramos MD. rn Disposition: 09/16/19 23:31 Discharged to Home. Impression: Acute stress reaction. - Condition is Stable. - Discharge Instructions: Posttraumatic Stress Disorder, Stress and Stress Management. - Medication Reconciliation Form, Thank You Letter, Antibiotic Education, Prescription Opioid Use form. - Follow up: Emergency Department; When: As needed; Reason: Worsening of condition. Follow up: Private Physician; When: 1 - 2 days; Reason: Recheck today's complaints, Continuance of care, Re-evaluation by your physician. Signatures: Mena Palumbo, PULL OUT OPERATOR-C PULL OUT OPERATOR-Csnw Segundo Ramos MD MD rn [place], Winsy Corrections: (The following items were deleted from the chart) 00:00 09/16 23:31 09/16/2019 23:31 Discharged to Home. Impression: Acute stress reaction. wh Condition is Stable. Forms are Medication Reconciliation Form, Thank You Letter, Antibiotic Education, Prescription Opioid Use. Follow up: Emergency Department; When: As needed; Reason: Worsening of condition. Follow up: Private Physician; When: 1 - 2 days; Reason: Recheck today's complaints, Continuance of care, Re-evaluation by your physician. snw
--- NOTE | 2019-09-17 00:01 | ER ---
Nurse's Notes [facility] Name: Charo Flood Age: 24 yrs Sex: Female : 1995 Arrival Date: 09/16/2019 Time: 23:14 Bed 19 Private MD: Diagnosis: Acute stress reaction Presentation: 09/16 23:12 Presenting complaint: EMS states: Per EMS Pt was having argument with boyfriend and wh threatened to hurt herself. Per EMS Pt hit her head with her hands. Pt with Hx of Suicidal Ideation and attempt but states she did not want to hurt herself tonight. She stated she just wants her boyfriend away from her that is why she hit her head. Transition of care: patient was not received from another setting of care. Onset of symptoms was September 16, 2019. Risk Assessment: Do you want to hurt yourself or someone else? Patient reports no desire to harm self or others. Initial Sepsis Screen: Does the patient meet any 2 criteria? No. Patient's initial sepsis screen is negative. Does the patient have a suspected source of infection? No. Patient's initial sepsis screen is negative. Care prior to arrival: None. 23:12 Method Of Arrival: EMS: [facility] 23:12 Acuity: LEMUEL 3 [employer]: 23:22 LMP 09/14/2019 Historical: - Allergies: 23:29 Morphine (Vomiting); - Home Meds: 23:29 venlafaxine 37.5 mg oral tab [Active]; - PMHx: 23:29 Anxiety; Depression; - PSHx: 23:29 None; - Immunization history:: Adult Immunizations not up to date. - Social history:: Smoking status: Patient uses tobacco products, smokes one pack cigarettes per day. Patient uses street drugs. - Ebola Screening: : Patient negative for fever greater than or equal to 101.5 degrees Fahrenheit, and additional compatible Ebola Virus Disease symptoms Patient denies exposure to infectious person. Screenin:26 Abuse screen: Denies threats or abuse. Denies injuries from another. Nutritional screening: No deficits noted. Tuberculosis screening: No symptoms or risk factors identified. Fall Risk None identified. Assessment: 23:26 General: Appears in no apparent distress. Behavior is calm, cooperative, appropriate wh for age. Pain: Denies pain. Neuro: Level of Consciousness is awake, alert, obeys commands, Oriented to person, place, time, situation, Appropriate for age. Cardiovascular: Heart tones S1 S2. Respiratory: Airway is patent Respiratory effort is even, unlabored, Respiratory pattern is regular, symmetrical. GI: Abdomen is flat, non-distended. : No signs and/or symptoms were reported regarding the genitourinary system. EENT: No signs and/or symptoms were reported regarding the EENT system. Derm: Skin is intact, is healthy with good turgor, Skin is pink, warm \T\ dry. normal. Musculoskeletal: Circulation, motion, and sensation intact. Vital Signs: 23:22 BP 120 / 72; Pulse 85; Resp 16; Temp 98; Pulse Ox 100% ; Weight 54.43 kg; Height 5 ft. wh 2 in. (157.48 cm); 23:22 Body Mass Index 21.95 (54.43 kg, 157.48 cm) ED Course: 23:14 Patient arrived in ED. ds1 23:15 Mena Palumbo FNP-C [facility]. snw 23:15 Segundo Ramos MD is Attending Physician. snw 23:16 Rosas Granda is Primary Nurse. 23:21 Triage completed. 23:27 Arm band placed on right wrist. 23:27 Patient has correct armband on for positive identification. Bed in low position. Call light in reach. Side rails up X 1. Pulse ox on. NIBP on. 23:58 No provider procedures requiring assistance completed. Patient did not have IV access during this emergency room visit. Administered Medications: No medications were administered Outcome: 23:31 Discharge ordered by . snw 23:58 Discharged to home ambulatory. 23:58 Condition: stable 23:58 Discharge instructions given to patient, Instructed on discharge instructions, follow up and referral plans. POC Stress Management Demonstrated understanding of instructions, follow-up care, POC 09/17 00:00 Patient left the ED. Signatures: Mena Palumbo FNP-C GRAPHIC DESIGN INTERN-[address] ds1 Rosas Granda
[2019-09-17 00:57] VITALS: BP 120/72; TEMP 98; O2SAT 100
== END 2019-09-17 | disposition home or self-care (01) ==
LOC: ER 23:13
DX: F43.0 Acute stress reaction (principal); F17.210 Nicotine dependence, cigarettes, uncomplicated; Z88.5 Allergy status to narcotic agent
CPT/HCPCS: 99283

== ENCOUNTER 2023-04-16 00:04 | Emergency (ER) | payer SELFPAY ==
--- OUTSIDE RECORDS SUMMARY | 2023-04-16 00:08 | XMS REPORT | Continuity of Care Document ---
:[address] [facility] t Address [address] [place] [address] Care Team Providers Name Role Phone Unavailable Unavailable Unavailable Payers Payer Name Policy Type Policy Number Effective Date Expiration Date S ource Problems This patient has no known problems. Allergies, Adverse Reactions, Alerts Allergy Allergy Status Severity Reaction(s) Onset Inactive Treating Comm ents Source Name Type Date Date Clinician morphine DA Active MO 0 [facility] 9-30 Clear 00:00: Rogers [address] [place] [address] Medications This patient has no known medications. Procedures This patient has no known procedures. Results Test Description Test Time Test Comments Results Result Comments Source BASIC METABOLIC PANEL 2019-08-02 04:11:00 Test Item Value Reference Range Interpretation Comme nts SODIUM (test code = NA) 140 mmol/L 134-147 N POTASSIUM (test code = K) 4.2 mmol/L 3.4-5.0 N CHLORIDE (test code = CL) 108 mmol/L 100-108 N CARBON DIOXIDE (test code = CO2) 28 mmol/L 21-32 N ANION GAP (test code = GAP) 4.0 GAP calc 4.0-15.0 N GLUCOSE (test code = GLU) 87 MG/DL 70-110 N BLOOD UREA NITROGEN (test code = BUN) 6 MG/DL 7-18 L GLOMERULAR FILTRATION RATE (test code = GFR) >=60 max estimate estG FR >60 CREATININE (test code = CREAT) 0.6 MG/DL 0.6-1.0 N CALCIUM (test code = CA) 8.7 MG/DL 8.5-10.1 N CREATINE KINASE (CK)2019-08-02 04:11:00 Test Item Value Reference Range Interpretation Comments CREATINE KINASE (CK) (test code = 754 Unit/L 26-192 H CK) CBC W/AUTO [id number] 03:59:00 Test Item Value Reference Range Interpretation Comments WHITE BLOOD CELL (test code = 9.1 K/mm3 3.5-11.0 N WBC) RED BLOOD CELL (test code = RBC) 3.53 M/mm3 4.70-6.10 L HEMOGLOBIN (test code = HGB) 11.2 G/DL 10.4-14.9 N HEMATOCRIT (test code = HCT) 33.7 % 31.5-44.1 N MEAN CELL VOLUME (test code = 95.5 Fl 84.5-98.6 N MCV) MEAN CELL HGB (test code = MCH) 31.7 pg 27.0-34.2 N MEAN CELL HGB CONCETRATION (test 33.2 G/DL 31.5-34.0 N code = MCHC) RED CELL DISTRIBUTION WIDTH (test 13.5 SD 11.5-14.5 N code = RDW) PLATELET COUNT (test code = PLT) 345.0 K/mm3 150-450 N MEAN PLATELET VOLUME (test code = 9.20 fL 7.0-10.5 N MPV) NEUTROPHIL % (test code = NT%) 54.5 % 40-76 N LYMPHOCYTE % (test code = LY%) 35.1 % 20.5-51.1 N MONOCYTE % (test code = MO%) 8.7 % 1.7-9.3 N EOSINOPHIL % (test code = EO%) 1.4 % 0.0-6.0 N BASOPHIL % (test code = BA%) 0.3 % 0.0-2.0 N NEUTROPHIL # (test code = NT#) 4.94 K/mm3 1.8-7.6 N LYMPHOCYTE # (test code = LY#) 3.2 K/mm3 0.6-3.2 N MONOCYTE # (test code = MO#) 0.8 K/mm3 0.3-1.1 N EOSINOPHIL # (test code = EO#) 0.1 K/mm3 0.0-0.4 N BASOPHIL # (test code = BA#) 0.0 K/mm3 0.0-0.1 N MANUAL DIFF REQUIRED (test code = NO DIFF/SCN CRITERIA MDIFF) BASIC METABOLIC [id number] 04:28:00 Test Item Value Reference Range Interpretation Comments SODIUM (test code = NA) 139 mmol/L 134-147 N POTASSIUM (test code = 4.0 mmol/L 3.4-5.0 N K) CHLORIDE (test code = 108 mmol/L 100-108 N CL) CARBON DIOXIDE (test 26 mmol/L 21-32 N code = CO2) ANION GAP (test code = 5.0 GAP calc 4.0-15.0 N GAP) GLUCOSE (test code = 95 MG/DL 70-110 N GLU) BLOOD UREA NITROGEN 7 MG/DL 7-18 N (test code = BUN) GLOMERULAR FILTRATION >=60 max estimate >60 RATE (test code = GFR) estGFR CREATININE (test code = 0.7 MG/DL 0.6-1.0 N CREAT) CALCIUM (test code = CA) 8.7 MG/DL 8.5-10.1 N CREATINE KINASE (CK)2019-08-01 04:28:00 Test Item Value Reference Range Interpretation Comments CREATINE KINASE (CK) (test code = 1502 Unit/L 26-192 HH CK) CBC W/AUTO [id number] 03:56:00 Test Item Value Reference Range Interpretation Comments WHITE BLOOD CELL (test code = 11.4 K/mm3 3.5-11.0 H WBC) RED BLOOD CELL (test code = RBC) 3.61 M/mm3 4.70-6.10 L HEMOGLOBIN (test code = HGB) 11.3 G/DL 10.4-14.9 N HEMATOCRIT (test code = HCT) 35.0 % 31.5-44.1 N MEAN CELL VOLUME (test code = 97.0 Fl 84.5-98.6 N MCV) MEAN CELL HGB (test code = MCH) 31.3 pg 27.0-34.2 N MEAN CELL HGB CONCETRATION (test 32.3 G/DL 31.5-34.0 N code = MCHC) RED CELL DISTRIBUTION WIDTH (test 13.6 SD 11.5-14.5 N code = RDW) PLATELET COUNT (test code = PLT) 364.0 K/mm3 150-450 N MEAN PLATELET VOLUME (test code = 9.10 fL 7.0-10.5 N MPV) NEUTROPHIL % (test code = NT%) 58.3 % 40-76 LYMPHOCYTE % (test code = LY%) 33.2 % 20.5-51.1 N MONOCYTE % (test code = MO%) 7.1 % 1.7-9.3 N EOSINOPHIL % (test code = EO%) 1.1 % 0.0-6.0 N BASOPHIL % (test code = BA%) 0.3 % 0.0-2.0 N NEUTROPHIL # (test code = NT#) 6.63 K/mm3 1.8-7.6 N LYMPHOCYTE # (test code = LY#) 3.8 K/mm3 0.6-3.2 H MONOCYTE # (test code = MO#) 0.8 K/mm3 0.3-1.1 N EOSINOPHIL # (test code = EO#) 0.1 K/mm3 0.0-0.4 N BASOPHIL # (test code = BA#) 0.0 K/mm3 0.0-0.1 N MANUAL DIFF REQUIRED (test code = NO DIFF/SCN CRITERIA MDIFF) CREATINE KINASE (CK)2019-07-31 22:36:00 Test Item Value Reference Range Interpretation Comments CREATINE KINASE (CK) (test code = 1566 Unit/L 26-192 HH CK) CREATINE KINASE (CK)2019-07-31 12:47:00 Test Item Value Reference Range Interpretation Comments CREATINE KINASE (CK) (test code = 1265 Unit/L 26-192 HH CK) CBC W/AUTO [id number] 12:21:00 Test Item Value Reference Range Interpretation Comments WHITE BLOOD CELL (test code = 12.1 K/mm3 3.5-11.0 H WBC) RED BLOOD CELL (test code = RBC) 4.01 M/mm3 4.70-6.10 L HEMOGLOBIN (test code = HGB) 12.6 G/DL 10.4-14.9 N HEMATOCRIT (test code = HCT) 38.5 % 31.5-44.1 N MEAN CELL VOLUME (test code = 96.0 Fl 84.5-98.6 N MCV) MEAN CELL HGB (test code = MCH) 31.4 pg 27.0-34.2 N MEAN CELL HGB CONCETRATION (test 32.7 G/DL 31.5-34.0 N code = MCHC) RED CELL DISTRIBUTION WIDTH (test 13.6 SD 11.5-14.5 N code = RDW) PLATELET COUNT (test code = PLT) 399.0 K/mm3 150-450 N MEAN PLATELET VOLUME (test code = 8.80 fL 7.0-10.5 N MPV) NEUTROPHIL % (test code = NT%) 66.1 % 40-76 LYMPHOCYTE % (test code = LY%) 27.0 % 20.5-51.1 N MONOCYTE % (test code = MO%) 6.0 % 1.7-9.3 N EOSINOPHIL % (test code = EO%) 0.7 % 0.0-6.0 N BASOPHIL % (test code = BA%) 0.2 % 0.0-2.0 N NEUTROPHIL # (test code = NT#) 7.98 K/mm3 1.8-7.6 H LYMPHOCYTE # (test code = LY#) 3.3 K/mm3 0.6-3.2 H MONOCYTE # (test code = MO#) 0.7 K/mm3 0.3-1.1 N EOSINOPHIL # (test code = EO#) 0.1 K/mm3 0.0-0.4 N BASOPHIL # (test code = BA#) 0.0 K/mm3 0.0-0.1 N MANUAL DIFF REQUIRED (test code = NO DIFF/SCN CRITERIA MDIFF) UA RFLX MICR CULT IF [id number] 15:29:00 Test Item Value Reference Range Interpretation Comments UA COLOR (test code = YELLOW discript YEL/STRAW COLU) UA APPEARANCE (test code HAZY discript CLEAR A = APPU) UA GLUCOSE DIPSTICK (test NEGATIVE mg/dL NEG code = DGLUU) UA BILIRUBIN DIPSTICK 1+ mg/dL NEG A (test code = BILU) UA KETONE DIPSTICK (test TRACE mg/dL NEG code = KETU) UA SPECIFIC GRAVITY (test >=1.030 SG 1.005-1.030 A code = SGU) UA BLOOD DIPSTICK (test TRACE mg/DL NEG A code = MICHA) UA PH DIPSTICK (test code 5.5 pH UNITS 5.0-7.0 = TAMMY) UA PROTEIN DIPSTICK (test 1+ mg/dL NEG A code = PROU) UA UROBILINIOGEN DIPSTICK 0.2 mg/dL <2.0 (test code = URO) UA NITRITE DIPSTICK (test NEGATIVE SCREEN NEG code = RUPERT) UA LEUKOCYTE ESTERASE TRACE Leuk/mcL NEGATIVE A DIPSTICK (test code = LEUU) UA WBC (test code = WBCU) 1-3 #WBC/HPF 0-3 UA RBC (test code = RBCU) 1-3 #RBC/HPF 0-3 UA BACTERIA (test code = TRACE /HPF NONE-TRACE BACU) UA SQUAMOUS CELLS (test TRACE /HPF NONE code = SQU) UA CALCIUM OXALATE TRACE /HPF NONE SEEN A CRYSTALS (test code = CAOXU) UA MUCUS (test code = 1+ /LPF NONE SEEN MUCU) UA CULTURE NEEDED? (test NO, WBC<10 Criteria Culture CHK code = UACULT) SOURCE OF URINE: CLEAN CATCHIndication for culture: Delirium-if no other src DRUGS OF ABUSE SCREEN [id number] 15:29:00 Test Item Value Reference Range Interpretation Comments URN COCAINE (test code = NEGATIVE SCcutoff <300 NG/ML COCAURN) URN CANNABINOIDS (test code POSITIVE SCcutoff <50 NG/ML A = CANNABURN) URN AMPHETAMINE (test code NEGATIVE SCcutoff <1000 NG/ML = AMPHETURN) URN BARBITURATE (test code NEGATIVE SCcutoff <200 NG/ML = BARBITURN) URN BENZODIAZEPINE (test NEGATIVE SCcutoff <200 NG/ML code = BENZOURN) URN OPIATES (test code = NEGATIVE SCcutoff <2000 NG/ML OPIATURN) URN PHENCYCLIDINE (PCP) NEGATIVE SCcutoff <25 NG/ML (test code = PHENCURN) URN METHADONE (test code = NEGATIVE SCcutoff <300 NG/ML METHAURN) SOURCE OF URINE: CLEAN CATCHIndication for culture: Delirium-if no other srcUA RFLX MICR CULT IF [id number] 14:54:00 Test Item Value Reference Range Interpretation Comments UA COLOR (test code = COLU) YELLOW discript YEL/STRAW UA APPEARANCE (test code = HAZY discript CLEAR A APPU) UA GLUCOSE DIPSTICK (test NEGATIVE mg/dL NEG code = DGLUU) UA BILIRUBIN DIPSTICK (test 1+ mg/dL NEG A code = BILU) UA KETONE DIPSTICK (test code TRACE mg/dL NEG = KETU) UA SPECIFIC GRAVITY (test >=1.030 SG 1.005-1.030 A code = SGU) UA BLOOD DIPSTICK (test code TRACE mg/DL NEG A = MICHA) UA PH DIPSTICK (test code = 5.5 pH UNITS 5.0-7.0 TAMMY) UA PROTEIN DIPSTICK (test 1+ mg/dL NEG A code = PROU) UA UROBILINIOGEN DIPSTICK 0.2 mg/dL <2.0 (test code = URO) UA NITRITE DIPSTICK (test NEGATIVE SCREEN NEG code = RUPERT) UA LEUKOCYTE ESTERASE TRACE Leuk/mcL NEGATIVE A DIPSTICK (test code = LEUU) UA WBC (test code = WBCU) 1-3 #WBC/HPF 0-3 UA RBC (test code = RBCU) 1-3 #RBC/HPF 0-3 UA BACTERIA (test code = TRACE /HPF NONE-TRACE BACU) UA SQUAMOUS CELLS (test code TRACE /HPF NONE = SQU) UA CALCIUM OXALATE CRYSTALS TRACE /HPF NONE SEEN A (test code = CAOXU) UA MUCUS (test code = MUCU) 1+ /LPF NONE SEEN UA CULTURE NEEDED? (test code Criteria Culture CHK = UACULT) SOURCE OF URINE: CLEAN CATCHIndication for culture: Delirium-if no other src DRUGS OF ABUSE SCREEN [id number] 14:54:00 Test Item Value Reference Range Interpretation Comments URN COCAINE (test code = NEGATIVE SCcutoff <300 NG/ML COCAURN) URN CANNABINOIDS (test code POSITIVE SCcutoff <50 NG/ML A = CANNABURN) URN AMPHETAMINE (test code NEGATIVE SCcutoff <1000 NG/ML = AMPHETURN) URN BARBITURATE (test code NEGATIVE SCcutoff <200 NG/ML = BARBITURN) URN BENZODIAZEPINE (test NEGATIVE SCcutoff <200 NG/ML code = BENZOURN) URN OPIATES (test code = NEGATIVE SCcutoff <2000 NG/ML OPIATURN) URN PHENCYCLIDINE (PCP) NEGATIVE SCcutoff <25 NG/ML (test code = PHENCURN) URN METHADONE (test code = NEGATIVE SCcutoff <300 NG/ML METHAURN) SOURCE OF URINE: CLEAN CATCHIndication for culture: Delirium-if no other src BASIC METABOLIC [id number] 14:36:00 Test Item Value Reference Range Interpretation Comments SODIUM (test code = NA) 139 mmol/L 134-147 N POTASSIUM (test code = 4.0 mmol/L 3.4-5.0 N K) CHLORIDE (test code = 108 mmol/L 100-108 N CL) CARBON DIOXIDE (test 26 mmol/L 21-32 N code = CO2) ANION GAP (test code = 5.0 GAP calc 4.0-15.0 N GAP) GLUCOSE (test code = 103 MG/DL 70-110 N GLU) BLOOD UREA NITROGEN 8 MG/DL 7-18 N (test code = BUN) GLOMERULAR FILTRATION >=60 max estimate >60 RATE (test code = GFR) estGFR CREATININE (test code = 0.9 MG/DL 0.6-1.0 N CREAT) CALCIUM (test code = CA) 9.3 MG/DL 8.5-10.1 N Last Dose Date: 07/17/19 Dose Time: 1402HEPATIC FUNCTION [id number] 14:36:00 Test Item Value Reference Range Interpretation Comments TOTAL PROTEIN (test code = PROT) 8.3 G/DL 6.4-8.2 H ALBUMIN (test code = ALB) 4.4 G/DL 3.4-5.0 N BILIRUBIN TOTAL (test code = BILT) 0.50 MG/DL 0.2-1.2 N BILIRUBIN DIRECT (test code = 0.10 MG/DL 0.00-0.30 N BILD) BILIRUBIN INDIRECT (test code = 0.40 MG/DL 0.2-1.2 N BILIND) SGOT/AST (test code = AST) 32 Unit/L 15-37 N SGPT/ALT (test code = ALT) 29 Unit/L 12-78 N ALKALINE PHOSPHATASE TOTAL (test 105 Unit/L 45-117 N code = ALKP) Last Dose Date: 07/17/19 Dose Time: 2CREATINE KINASE (CK)2019-07-30 14:36:00 Test Item Value Reference Range Interpretation Comments CREATINE KINASE (CK) (test code = 778 Unit/L 26-192 H CK) Last Dose Date: 07/17/19Las Dose Time: [id number] 14:36:00 Test Item Value Reference Range Interpretation Comments ACETAMINOPHEN (test code = ACET) < 2.0 mcG/ML 10.0-30.0 L Last Dose Date: 07/17/19Las Dose Time: [id number] 14:36:00 Test Item Value Reference Range Interpretation Comments ALCOHOL (test code = ALC) < 3 MG/DL 0-10 N Last Dose Date: 07/17/19Last Dose Time: [id number] 14:32:00 Test Item Value Reference Range Interpretation Comments SALICYLATE (test code = CANDACE) 5.7 MG/DL 2.8-20.0 THER N UA RFLX MICR CULT IF [id number] 14:32:00 Test Item Value Reference Range Interpretation Comments UA COLOR (test code = COLU) YELLOW discript YEL/STRAW UA APPEARANCE (test code = HAZY discript CLEAR A APPU) UA GLUCOSE DIPSTICK (test NEGATIVE mg/dL NEG code = DGLUU) UA BILIRUBIN DIPSTICK (test 1+ mg/dL NEG A code = BILU) UA KETONE DIPSTICK (test code TRACE mg/dL NEG = KETU) UA SPECIFIC GRAVITY (test >=1.030 SG 1.005-1.030 A code = SGU) UA BLOOD DIPSTICK (test code TRACE mg/DL NEG A = MICHA) UA PH DIPSTICK (test code = 5.5 pH UNITS 5.0-7.0 TAMMY) UA PROTEIN DIPSTICK (test 1+ mg/dL NEG A code = PROU) UA UROBILINIOGEN DIPSTICK 0.2 mg/dL <2.0 (test code = URO) UA NITRITE DIPSTICK (test NEGATIVE SCREEN NEG code = RUPERT) UA LEUKOCYTE ESTERASE TRACE Leuk/mcL NEGATIVE A DIPSTICK (test code = LEUU) UA CULTURE NEEDED? (test code Criteria Culture CHK = UACULT) SOURCE OF URINE: CLEAN CATCHIndication for culture: Delirium-if no other src DRUGS OF ABUSE SCREEN [id number] 14:32:00 Test Item Value Reference Range Interpretation Comments URN COCAINE (test code = NEGATIVE SCcutoff <300 NG/ML COCAURN) URN CANNABINOIDS (test code POSITIVE SCcutoff <50 NG/ML A = CANNABURN) URN AMPHETAMINE (test code NEGATIVE SCcutoff <1000 NG/ML = AMPHETURN) URN BARBITURATE (test code NEGATIVE SCcutoff <200 NG/ML = BARBITURN) URN BENZODIAZEPINE (test NEGATIVE SCcutoff <200 NG/ML code = BENZOURN) URN OPIATES (test code = NEGATIVE SCcutoff <2000 NG/ML OPIATURN) URN PHENCYCLIDINE (PCP) NEGATIVE SCcutoff <25 NG/ML (test code = PHENCURN) URN METHADONE (test code = NEGATIVE SCcutoff <300 NG/ML METHAURN) SOURCE OF URINE: CLEAN CATCHIndication for culture: Delirium-if no other srcUA RFLX MICR CULT IF [id number] 14:17:00 Test Item Value Reference Range Interpretation Comments UA COLOR (test code = COLU) YELLOW discript YEL/STRAW UA APPEARANCE (test code = HAZY discript CLEAR A APPU) UA GLUCOSE DIPSTICK (test NEGATIVE mg/dL NEG code = DGLUU) UA BILIRUBIN DIPSTICK (test 1+ mg/dL NEG A code = BILU) UA KETONE DIPSTICK (test code TRACE mg/dL NEG = KETU) UA SPECIFIC GRAVITY (test >=1.030 SG 1.005-1.030 A code = SGU) UA BLOOD DIPSTICK (test code TRACE mg/DL NEG A = MICHA) UA PH DIPSTICK (test code = 5.5 pH UNITS 5.0-7.0 TAMMY) UA PROTEIN DIPSTICK (test 1+ mg/dL NEG A code = PROU) UA UROBILINIOGEN DIPSTICK 0.2 mg/dL <2.0 (test code = URO) UA NITRITE DIPSTICK (test NEGATIVE SCREEN NEG code = RUPERT) UA LEUKOCYTE ESTERASE TRACE Leuk/mcL NEGATIVE A DIPSTICK (test code = LEUU) UA CULTURE NEEDED? (test code Criteria Culture CHK = UACULT) SOURCE OF URINE: CLEAN CATCHIndication for culture: Delirium-if no other src DRUGS OF ABUSE SCREEN [id number] 14:17:00 Test Item Value Reference Range Interpretation Comments URN COCAINE (test code = COCAURN) SCcutoff <300 NG/ML URN CANNABINOIDS (test code = SCcutoff <50 NG/ML CANNABURN) URN AMPHETAMINE (test code = SCcutoff <1000 NG/ML AMPHETURN) URN BARBITURATE (test code = SCcutoff <200 NG/ML BARBITURN) URN BENZODIAZEPINE (test code = SCcutoff <200 NG/ML BENZOURN) URN OPIATES (test code = OPIATURN) SCcutoff <2000 NG/ML URN PHENCYCLIDINE (PCP) (test code SCcutoff <25 NG/ML = PHENCURN) URN METHADONE (test code = SCcutoff <300 NG/ML METHAURN) SOURCE OF URINE: CLEAN CATCHIndication for culture: Delirium-if no other srcCBC W/AUTO [id number] 14:16:00 Test Item Value Reference Range Interpretation Comments WHITE BLOOD CELL (test code = 15.7 K/mm3 3.5-11.0 H WBC) RED BLOOD CELL (test code = RBC) 4.08 M/mm3 4.70-6.10 L HEMOGLOBIN (test code = HGB) 13.0 G/DL 10.4-14.9 N HEMATOCRIT (test code = HCT) 39.0 % 31.5-44.1 N MEAN CELL VOLUME (test code = 95.6 Fl 84.5-98.6 N MCV) MEAN CELL HGB (test code = MCH) 31.9 pg 27.0-34.2 N MEAN CELL HGB CONCETRATION (test 33.3 G/DL 31.5-34.0 N code = MCHC) RED CELL DISTRIBUTION WIDTH (test 13.7 SD 11.5-14.5 N code = RDW) PLATELET COUNT (test code = PLT) 450.0 K/mm3 150-450 N MEAN PLATELET VOLUME (test code = 8.90 fL 7.0-10.5 N MPV) NEUTROPHIL % (test code = NT%) 79.0 % 40-76 H LYMPHOCYTE % (test code = LY%) 15.9 % 20.5-51.1 L MONOCYTE % (test code = MO%) 4.7 % 1.7-9.3 N EOSINOPHIL % (test code = EO%) 0.1 % 0.0-6.0 N BASOPHIL % (test code = BA%) 0.3 % 0.0-2.0 N NEUTROPHIL # (test code = NT#) 12.40 K/mm3 1.8-7.6 H LYMPHOCYTE # (test code = LY#) 2.5 K/mm3 0.6-3.2 N MONOCYTE # (test code = MO#) 0.7 K/mm3 0.3-1.1 N EOSINOPHIL # (test code = EO#) 0.0 K/mm3 0.0-0.4 N BASOPHIL # (test code = BA#) 0.0 K/mm3 0.0-0.1 N MANUAL DIFF REQUIRED (test code = NO DIFF/SCN CRITERIA MDIFF) Notes Date/Time Note Provider Source 2019-08-18 16:21:00-00:00 [facility] ([facility]) Hospitalist Discharge Summary REPORT#:[id number] REPORT STATUS: Signed DATE:08/18/19 TIME:1620 PATIENT: JIE MA UNIT #: [id number] ROOM[address]BED[address] : [address] AGE: 24 SEX: F ATTEND: Dc Preciado MD ADM AUTHOR: Sylvie Powell MD * ALL edits or amendments must be made on the el [employer]/computer document * PCP PCP Discharge to: home General Information Date of admission: Observation Start Date: Date of admission: 07/31/19 Discharge date: 08/02/19 Hospital course: Suicidal indeation on ANUPAM Rhabdomyolysis Substance abuse, +cannabinoids on UDS Hx of schizophrenia HOSPITAL COURSE Suicide precautions, 1:1 sitter IV hydration Has been evaluated by [facility] with recs for involuntary inpatient psych admission Pt counseled on drug cessation Pt. condition on discharge: stable Allergies: Allergies: morphine (Coded, Intermediate, AGITATION, ) Med Rec Med Rec Discharge meds: Continue taking these medications: DIAZEPAM (VALIUM) 2 MG TAB 10 MILLIGRAM ORAL QD PRN as needed for ANXIETY Discharge Instructions Diet: regular Activity: as tolerated Follow-up Appointments PCP: Follow up timeframe: In 1-2 weeks Objective Physical Exam General appearance: alert, awake, oriented Head/Eyes: atraumatic, normocephalic ENT: dry mucosal membrane, poor dentition Cardiovascular: normal capillary refill, normal heart sounds, regular rate rhythm Respiratory: clear to auscultation, symmetric ex pansion, no distress Abdomen: non-tender, soft, no distention Extremities: moves all, no edema Neuro/BOARD MIXER TENDER: alert, normal speech Quality Medications Current medication review: I attest that the foregoing medication list in t medical record is true, accurate, and complete to the best of my knowled ge. Electronically Signed by Sylvie Powell MD on at 1623 RPT #: [id number] END OF REPORT 2019-08-02 10:31:00-00:00 [facility] Hospitalist Progress Note REPORT#:[id number] REPORT STATUS: Signed DATE:08/02/19 TIME:1031 PATIENT: JIE MA UNIT #: [id number] ROOM/BED: [place] [address] : 95 AGE: 24 SEX: F ATTEND: Dc Preciado MD ADM AUTHOR: Sylvie Powell MD * ALL edits or amendments must be made on the el [employer]/computer document * Objective General VS/I O: Vital Signs: Date Time Temp Pulse Resp B/P B/P Pulse O2 O2 F low FiO2 Mean Ox Delivery Rate 08/02 0702 98.1 69 18 118/73 87.7 98 Room air 08/02 0315 97.5 72 17 118/68 0.0 98 Room air 08/01 2259 98.1 78 18 128/86 100.3 98 Room air 08/01 1913 98.4 79 18 106/61 76.2 98 Room air 08/01 1606 98.4 97 18 107/66 79.4 97 08/01 1148 99.0 85 18 128/67 87.4 99 24 hour I O ending at 0700: 08/02 0700 08/01 1900 Intake Total 700 Output Total Balance 700 Intake, Oral 700 Patient Weight Weight (lb): Weight (oz): Weight (kg): 52.273 Physical Exam General appearance: alert, awake Head/Eyes: atraumatic, normocephalic ENT: dry mucosal membrane, poor dentition Cardiovascular: normal capillary refill, normal heart sounds, regular rate rhythm Respiratory: clear to auscultation, symmetric ex pansion, no distress Abdomen: non-tender, soft, no distention Extremities: moves all, no edema 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 Denies any SI/HI /AVH currently. Diagnosis, Assessment Plan Free Text DxA P Notes Free Text DxA P Notes: Suicidal indeation on ANUPAM Rhabdomyolysis Substance abuse, +cannabinoids on UDS Hx of schizophrenia Plan Suicide precautions, 1:1 sitter IV hydration Has been evaluated by [facility] with recs for involuntary inpatient psych admission Pt counseled on drug cessation medically cleared to be discharged to inpatient psych unit Electronically Signed by Sylvie Powell MD on at 1032 RPT #: [id number] END OF REPORT 2019-08-01 10:57:00-00:00 [facility]) Hospitalist Progress Note REPORT#:[id number] REPORT STATUS: Signed DATE:08/01/19 TIME:1057 PATIENT: JIE MA UNIT #: [id number] ROOM/BED: [place] [address] : 95 AGE: 24 SEX: F ATTEND: Dc Preciado MD ADM AUTHOR: Sylvie Powell MD * ALL edits or amendments must be made on the el [employer]/computer document * Objective Physical Exam General appearance: awake Head/Eyes: atraumatic, normocephalic ENT: dry mucosal membrane, poor dentition Cardiovascular: normal capillary refill, normal heart sounds, regular rate rhythm Respiratory: clear to auscultation, symmetric ex pansion, no distress Abdomen: non-tender, soft, no distention Extremities: moves all, no edema 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 Denies any SI/HI /AVH currently. Diagnosis, Assessment Plan Free Text DxA P Notes Free Text DxA P Notes: Suicidal indeation on ANUPAM Rhabdomyolysis Substance abuse, +cannabinoids on UDS Hx of schizophrenia Plan Suicide precautions, 1:1 sitter CPK still high continue with IV hydration Will repeat BMP, CK in AM Has been evaluated by [facility] with recs for involuntary inpatient psych admission Pt counseled on drug cessation Still not medically cleared to be discharged to inpatient psych unit Electronically Signed by Sylvie Powell MD on at 1058 RPT #: [id number] END OF REPORT 2019-08-01 00:10:00-00:00 [facility] ([facility]) Hospitalist History Physical REPORT#:[id number] REPORT STATUS: Signed DATE:08/01/19 TIME:0010 PATIENT: JIE MA UNIT #: [id number] ROOM/BED: [place] [address] : 95 AGE: 24 SEX: F ATTEND: Dc Preciado MD ADM AUTHOR: Sheila Richards * ALL edits or amendments must be made on the el [employer]/computer document * History of Present Illness HPI Chief complaint: SI Free Text HPI Notes Free Text HPI Notes: 24 y/o female with hx of schizophrenia was BIB p olice under ANUPAM to the ER yesterday for SI x10 days. Per report, the polic e dept had received multiple phone calls about pt c/o SI but would deny SI when they arrived on scene. Pt was initially medically cleared being observ ed in the ER and has been evaluated by [facility] who recommended involuntary inpatient psych admission. Pt is pending placement, but was noted to have uptrending CK levels 778 -> 1265 -> 1566 in the ER and subsequently admitted for further management. Pt currently denies any SI/ HI/AVH. Appears somewhat agitated but redirectab le, denies any complaints currently. History Past medical history: Reports: Schizophrenia. Additional medical history: schizophrenia Smoking status for patients 13 years old or olde r: Current every day smoker Other social history: Local resident Medication/Allergy-Vaccine Hx Home Medications: DIAZEPAM (VALIUM) 10 MG PO QD PRN PRN ANXIETY Allergies: Coded Allergies: morphine (Intermediate, AGITATION 07/30/19) Ambulatory status: Independent Review of Systems Constitutional: Denies: chills, fever. Skin: Denies: bruising, rash. Eyes: Denies: visual loss/blurred, eye pain. ENT: Denies: nasal congestion, sore throat. Respiratory: Denies: productive cough (sputum), SOB. Cardiovascular: Denies: chest pain, palpitations. GI: Denies: abdominal pain, nausea, vomiting. Musculoskeletal: Denies: extremity pain, extremity swelling. Neuro: Denies: dizziness, headache. Psych: Reports: agitation, anxiety. Denies: homicidal i deation, suicidal ideation. Objective General VS/I O: Vital Signs: Date Time Temp Pulse Resp B/P B/P Pulse O2 O2 F low FiO2 Mean Ox Delivery Rate 07/31 2353 37.1 65 18 109/69 82.3 100 07/31 2203 36.8 93 18 118/80 92 99 07/31 1200 36.6 67 16 110/63 78 100 Room air 07/31 0725 36.8 83 16 111/62 78 100 Room air 07/31 0400 36.9 70 16 113/70 84 100 Patient Weight Weight (lb): Weight (oz): Weight (kg): 52.273 Physical Exam General appearance: alert, awake, no acute distr ess Head/Eyes: atraumatic, normocephalic ENT: dry mucosal membrane, poor dentition Cardiovascular: normal capillary refill, normal heart sounds, regular rate rhythm Respiratory: clear to auscultation, symmetric ex pansion, no distress Abdomen: non-tender, soft, no distention Extremities: moves all, no edema 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 Denies any SI/HI /AVH currently. Results Findings/Data: Laboratory Tests 07/31 07/31 2155 1207 Chemistry Total Creatine Kinase (26 - 192 Unit/L) 1566 *H 1265 *H Laboratory Tests 07/31 1207 Hematology WBC (3.5 - 11.0 K/mm3) 12.1 H RBC (4.70 - 6.10 M/mm3) 4.01 L Hgb (10.4 - 14.9 G/DL) 12.6 Hct (31.5 - 44.1 %) 38.5 MCV (84.5 - 98.6 Fl) 96.0 MCH (27.0 - 34.2 pg) 31.4 MCHC (31.5 - 34.0 G/DL) 32.7 RDW (11.5 - 14.5 SD) 13.6 Plt Count (150 - 450 K/mm3) 399.0 MPV (7.0 - 10.5 fL) 8.80 Neut % (Auto) (40 - 76 %) 66.1 Lymph % (Auto) (20.5 - 51.1 %) 27.0 Deuel % (Auto) (1.7 - 9.3 %) 6.0 Eos % (Auto) (0.0 - 6.0 %) 0.7 Baso % (Auto) (0.0 - 2.0 %) 0.2 Neut # (Auto) (1.8 - 7.6 K/mm3) 7.98 H Lymph # (Auto) (0.6 - 3.2 K/mm3) 3.3 H Deuel # (Auto) (0.3 - 1.1 K/mm3) 0.7 Eos # (Auto) (0.0 - 0.4 K/mm3) 0.1 Baso # (Auto) (0.0 - 0.1 K/mm3) 0.0 Add Manual Diff (CRITERIA DIFF/SCN) NO Diagnosis, Assessment Plan Problem List/A P: 1. Suicidal ideation 2. Rhabdomyolysis 3. Substance abuse Free Text DxA P Notes Free Text DxA P Notes: Suicidal indeation on ANUPAM Rhabdomyolysis Substance abuse, +cannabinoids on UDS Hx of schizophrenia Plan Suicide precautions, 1:1 sitter Given NS IVF in ER but CK trended up 778 -> 1566 , will switch to LR 150cc/hr Will repeat BMP, CK in AM Has been evaluated by [facility] with recs for involuntary inpatient psych admission Pending medical clearance and psych placement Pt counseled on drug cessation at 0033 RPT #: [id number] END OF REPORT 2019-08-01 00:10:00-00:00 [facility] ([facility]) Hospitalist History Physical REPORT#:[id number] REPORT STATUS: Signed DATE:08/01/19 TIME:0010 PATIENT: JIE MA UNIT #: [id number] ROOM/BED: [place] [address] : 95 AGE: 24 SEX: F ATTEND: Dc Preciado MD ADM AUTHOR: Sheila Richards * ALL edits or amendments must be made on the el ectronic/computer document * Sheila Richards 08/01/19 0010: History of Present Illness HPI Chief complaint: SI Free Text HPI Notes Free Text HPI Notes: 24 y/o female with hx of schizophrenia was BIB p tessa under ANUPAM to the ER yesterday for SI x10 days. Per report, the polic e dept had received multiple phone calls about pt c/o SI but would deny SI when they arrived on scene. Pt was initially medically cleared being observ ed in the ER and has been evaluated by [facility] who recommended involuntary inpatient psych admission. Pt is pending placement, but was noted to have uptrending CK levels 778 -> 1265 -> 1566 in the ER and subsequently admitted for further management. Pt currently denies any SI/ HI/AVH. Appears somewhat agitated but redirectab le, denies any complaints currently. History Past medical history: Reports: Schizophrenia. Additional medical history: schizophrenia Smoking status for patients 13 years old or olde r: Current every day smoker Other social history: Local resident Medication/Allergy-Vaccine Hx Home Medications: DIAZEPAM (VALIUM) 10 MG PO QD PRN PRN ANXIETY Allergies: Coded Allergies: morphine (Intermediate, AGITATION 07/30/19) Ambulatory status: Independent Review of Systems Constitutional: Denies: chills, fever. Skin: Denies: bruising, rash. Eyes: Denies: visual loss/blurred, eye pain. ENT: Denies: nasal congestion, sore throat. Respiratory: Denies: productive cough (sputum), SOB. Cardiovascular: Denies: chest pain, palpitations. GI: Denies: abdominal pain, nausea, vomiting. Musculoskeletal: Denies: extremity pain, extremity swelling. Neuro: Denies: dizziness, headache. Psych: Reports: agitation, anxiety. Denies: homicidal i deation, suicidal ideation. Objective General VS/I O: Vital Signs: Date Time Temp Pulse Resp B/P B/P Pulse O2 O2 F low FiO2 Mean Ox Delivery Rate 07/31 2353 37.1 65 18 109/69 82.3 100 07/31 2203 36.8 93 18 118/80 92 99 07/31 1200 36.6 67 16 110/63 78 100 Room air 07/31 0725 36.8 83 16 111/62 78 100 Room air 07/31 0400 36.9 70 16 113/70 84 100 Patient Weight Weight (lb): Weight (oz): Weight (kg): 52.273 Physical Exam General appearance: alert, awake, no acute distr ess Head/Eyes: atraumatic, normocephalic ENT: dry mucosal membrane, poor dentition Cardiovascular: normal capillary refill, normal heart sounds, regular rate rhythm Respiratory: clear to auscultation, symmetric ex pansion, no distress Abdomen: non-tender, soft, no distention Extremities: moves all, no edema 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 Denies any SI/HI /AVH currently. Results Findings/Data: Laboratory Tests 07/31 07/31 2155 1207 Chemistry Total Creatine Kinase (26 - 192 Unit/L) 1566 *H 1265 *H Laboratory Tests 07/31 1207 Hematology WBC (3.5 - 11.0 K/mm3) 12.1 H RBC (4.70 - 6.10 M/mm3) 4.01 L Hgb (10.4 - 14.9 G/DL) 12.6 Hct (31.5 - 44.1 %) 38.5 MCV (84.5 - 98.6 Fl) 96.0 MCH (27.0 - 34.2 pg) 31.4 MCHC (31.5 - 34.0 G/DL) 32.7 RDW (11.5 - 14.5 SD) 13.6 Plt Count (150 - 450 K/mm3) 399.0 MPV (7.0 - 10.5 fL) 8.80 Neut % (Auto) (40 - 76 %) 66.1 Lymph % (Auto) (20.5 - 51.1 %) 27.0 Deuel % (Auto) (1.7 - 9.3 %) 6.0 Eos % (Auto) (0.0 - 6.0 %) 0.7 Baso % (Auto) (0.0 - 2.0 %) 0.2 Neut # (Auto) (1.8 - 7.6 K/mm3) 7.98 H Lymph # (Auto) (0.6 - 3.2 K/mm3) 3.3 H Deuel # (Auto) (0.3 - 1.1 K/mm3) 0.7 Eos # (Auto) (0.0 - 0.4 K/mm3) 0.1 Baso # (Auto) (0.0 - 0.1 K/mm3) 0.0 Add Manual Diff (CRITERIA DIFF/SCN) NO Diagnosis, Assessment Plan Problem List/A P: 1. Suicidal ideation 2. Rhabdomyolysis 3. Substance abuse Free Text DxA P Notes Free Text DxA P Notes: Suicidal indeation on ANUPAM Rhabdomyolysis Substance abuse, +cannabinoids on UDS Hx of schizophrenia Plan Suicide precautions, 1:1 sitter Given NS IVF in ER but CK trended up 778 -> 1566 , will switch to LR 150cc/hr Will repeat BMP, CK in AM Has been evaluated by [facility] with recs for involuntary inpatient psych admission Pending medical clearance and psych placement Pt counseled on drug cessation at 0033 at 1244 RPT #: [id number] END OF REPORT
[2023-04-16] MEDS ORDERED: LORAZEPAM 1 MG TABLET ONE (00:28)
[2023-04-16 00:39] LABS: Specific Gravity > 1.030 (1.005-1.030)
[2023-04-16 00:47] LABS: Barbiturates NEGATIVE (NEGATIVE); Benzodiazepines NEGATIVE (NEGATIVE); Cocaine NEGATIVE (NEGATIVE); METHAMPHETAM NEGATIVE (NEGATIVE); Methadone NEGATIVE (NEGATIVE); Opiates NEGATIVE (NEGATIVE); Phencyclidine NEGATIVE (NEGATIVE); THC Cannibis NEGATIVE (NEGATIVE)
--- NOTE | 2023-04-16 02:45 | ER ---
Nurse's Notes [facility] Name: Charo Flood Age: 28 yrs Sex: Female : 1995 Arrival Date: 04/16/2023 Time: 00:04 Bed 8 Private MD: Diagnosis: Anxiety disorder, unspecified;Contusion of right foot Presentation: 04/16 00:07 Chief complaint: Patient states: i AM HAVING A PANIC ATTACK PD REPORTS PT WAS INVOLVED kl IN DISTURBANCE AND WAS PLACED UNDER ARREST PD REQUESTS MEDICAL CLEARANCE. Coronavirus screen: Vaccine status: Patient reports being unvaccinated. Ebola Screen: Patient negative for fever greater than or equal to 101.5 degrees Fahrenheit, and additional compatible Ebola Virus Disease symptoms. Initial Sepsis Screen: Does the patient meet any 2 criteria? No. Patient's initial sepsis screen is negative. Does the patient have a suspected source of infection? No. Patient's initial sepsis screen is negative. Risk Assessment: Do you want to hurt yourself or someone else? Patient reports no desire to harm self or others. 00:07 Method Of Arrival: Law Enforcement: [place] [employer] 00:07 Acuity: LEMUEL 4 kl 00:11 Note PT REPORTS RIGHT ANKLE PAIN FROM SHACKLES. 02:50 Onset of symptoms was April 16, 2023. Triage Assessment: 00:10 General: Appears distressed, slender, unkempt, Behavior is cooperative, anxious. Pain: kl Complains of pain in anterior aspect of right ankle. Historical: - Allergies: 00:09 Morphine (Vomiting); kl - PMHx: 00:09 Anxiety; Depression; PTSD; kl - Immunization history:: Adult Immunizations not immunized. - Social history:: Smoking status: Patient reports the use of cigarette tobacco products, smokes one-half pack cigarettes per day, Patient uses street drugs, Methamphetamine (Meth). - Family history:: not pertinent. Screenin:15 [facility] ED Fall Risk Assessment (Adult) History of falling in the last 3 months, kl including since admission No falls in past 3 months (0 pts) Confusion or Disorientation No (0 pts) Intoxicated or Sedated No (0 pts) Impaired Gait No (0 pts) Mobility Assist Device Used No (0 pt) Altered Elimination No (0 pt) Score/Fall Risk Level 0 - 2 = Low Risk Oriented to surroundings, Maintained a safe environment. Abuse screen: Denies threats or abuse. Nutritional screening: No deficits noted. Tuberculosis screening: No symptoms or risk factors identified. Assessment: 01:14 Reassessment: Patient appears in no apparent distress at this time. Patient states kl feeling better. Patient states symptoms have improved. Vital Signs: 00:07 BP 112 / 79; Pulse 63; Resp 15; Temp 98.6(O); Pulse Ox 100% on R/A; Weight 50 kg (M); kl Height 5 ft. 2 in. ; Pain 3/10; 01:14 BP 115 / 81; Pulse 62; Resp 16; Pulse Ox 99% on R/A; kl 02:20 BP 105 / 73; Pulse 77; Pulse Ox 99% on R/A; kl 02:49 BP 112 / 68; Pulse 78; Resp 16; Pulse Ox 99% on R/A; kl 00:07 Body Mass Index 20.16 (50.00 kg, 157.48 cm) kl 00:07 Pain Scale: Adult ED Course: 00:07 Patient arrived in ED. as6 00:08 Dorian Rodriguez MD is Attending Physician. sp4 00:09 Triage completed. kl 00:26 Urine collected: clean catch specimen, cloudy. jw7 00:26 Urine Drug Screen Sent. jw7 00:26 Test, Urine Sent. jw7 01:05 Foot Right 3 View XRAY In Process Unspecified. EDMS 01:05 Ankle Right 3 View XRAY In Process Unspecified. EDMS 01:15 Patient has correct armband on for positive identification. Bed in low position. Call light in reach. 02:20 No apparent distress. Resting quietly. Appears to be sleeping. kl 02:49 No provider procedures requiring assistance completed. Patient did not have IV access kl during this emergency room visit. 02:50 Patient LACEY BANDAGE. kl Administered Medications: 00:23 Drug: LORazepam PO 1 mg Route: PO; kl 02:21 Follow up: Response: No adverse reaction; Marked relief of symptoms kl 02:41 Drug: bandage 1 units Route: Topical; Site: affected area; Medication: 02:50 VIS not applicable for this client. kl Outcome: 02:45 Discharge ordered by . sp4 02:49 Discharged to Law Enforcement kl 02:49 Condition: improved 02:49 Discharge instructions given to patient, police, Instructed on discharge instructions, follow up and referral plans. Demonstrated understanding of instructions, follow-up care. 02:50 Patient left the ED. kl Signatures: Dispatcher [employer] Jo Ann Le RN RN kl Slawson, Ashby, RN RN as6 Nayely Singh jw7 Dorian Rodriguez MD MD sp4
--- NOTE | 2023-04-16 02:45 | EDPHYS ---
Physician Documentation [facility] Name: Charo Flood Age: 28 yrs Sex: Female : 1995 Arrival Date: 04/16/2023 Time: 00:04 Bed 8 Private MD: ED Physician Dorian Rodriguez HPI: 04/16 00:09 This 28 yrs old Female presents to ER via Unassigned with complaints of sp4 anxiety. 02:39 28-year-old female presents with police escort after she was found wandering the [address] and kicking some metal embankment. Patient was found to be disturbing peace was handcuffed and brought here for medical clearance. Patient reports that she has anxiety and panic. Additionally patient reports she is emotionally upset secondary to the fact that her kids were taken away. . Historical: - Allergies: 00:09 Morphine (Vomiting); kl - PMHx: 00:09 Anxiety; Depression; PTSD; kl - Immunization history:: Adult Immunizations not immunized. - Social history:: Smoking status: Patient reports the use of cigarette tobacco products, smokes one-half pack cigarettes per day, Patient uses street drugs, Methamphetamine (Meth). - Family history:: not pertinent. ROS: 02:39 Constitutional: Negative for fever, chills, and weight loss, Eyes: Negative for injury, sp4 pain, redness, and discharge, ENT: Negative for injury, pain, and discharge, Neck: Negative for injury, pain, and swelling, Cardiovascular: Negative for chest pain, palpitations, and edema, Respiratory: Negative for shortness of breath, cough, wheezing, and pleuritic chest pain, Abdomen/GI: Negative for abdominal pain, nausea, vomiting, diarrhea, and constipation, Back: Negative for injury and pain, : Negative for injury, bleeding, discharge, and swelling, MS/Extremity: Positive for right ankle pain and injury. Skin: Negative for injury, rash, and discoloration, Neuro: Negative for headache, weakness, numbness, tingling, and seizure, Psych: Negative for depression, positive for anxiety and positive for emotional upset Allergy/Immunology: Negative for hives, rash, and allergies Endocrine: Negative for neck swelling, polydipsia, polyuria, polyphagia, and weight changes Hematologic/Lymphatic: Negative for swollen nodes, abnormal bleeding, and unusual bruising Exam: 02:39 Constitutional: This is a well developed, well nourished patient who is awake, alert, sp4 anxious appearing female no signs of panic Head/Face: Normocephalic, atraumatic. Eyes: Pupils equal round and reactive to light, extra-ocular motions intact. Lids and lashes normal. Conjunctiva and sclera are not injected. Cornea within normal limits. Periorbital areas with no swelling, redness, or edema. ENT: Nares patent. No nasal discharge, no septal abnormalities noted. Tympanic membranes are normal and external auditory canals are clear. Oropharynx with no redness, swelling, or masses, exudates, or evidence of obstruction, uvula midline. Mucous membranes moist. Poor dentition. Neck: Trachea midline, no thyromegaly or masses palpated, and no cervical lymphadenopathy. Supple, full range of motion without nuchal rigidity, or vertebral point tenderness. Chest/axilla: Normal chest wall appearance and motion. Nontender with no deformity. No lesions are appreciated. Cardiovascular: Regular rate and rhythm with a normal S1 and S2. No gallops, murmurs, or rubs. Normal PMI, no JVD. No pulse deficits. Respiratory: Lungs have equal breath sounds bilaterally, clear to auscultation and percussion. No rales, rhonchi or wheezes noted. No increased work of breathing, no retractions or nasal flaring. Abdomen/GI: Soft, non-tender, with normal bowel sounds. No distension or tympany. No guarding or rebound. No evidence of tenderness throughout. Back: No spinal tenderness. No costovertebral tenderness. Skin: Warm, dry with normal turgor. Normal color with no rashes, no lesions, and no evidence of cellulitis. MS/ Extremity: Pulses equal, no cyanosis. Neurovascular intact. Full, normal range of motion. Right ankle pain to palpation without deformity or discoloration Neuro: Awake and alert, GCS 15, oriented to person, place, time, and situation. Cranial nerves II-XII grossly intact. Motor strength 5/5 in all extremities. Sensory grossly intact. Psych: Awake, alert, with orientation to person, place and time. Behavior, mood, and affect are within normal limits Vital Signs: 00:07 BP 112 / 79; Pulse 63; Resp 15; Temp 98.6(O); Pulse Ox 100% on R/A; Weight 50 kg (M); kl Height 5 ft. 2 in. ; Pain 3/10; 01:14 BP 115 / 81; Pulse 62; Resp 16; Pulse Ox 99% on R/A; kl 02:20 BP 105 / 73; Pulse 77; Pulse Ox 99% on R/A; kl 02:49 BP 112 / 68; Pulse 78; Resp 16; Pulse Ox 99% on R/A; kl 00:07 Body Mass Index 20.16 (50.00 kg, 157.48 cm) kl 00:07 Pain Scale: Adult kl MDM: 00:16 Patient medically screened. sp4 02:35 ED course: Right ankle x-ray unremarkable. Right foot x-rays unremarkable.. sp4 02:39 Differential Diagnosis altered mental status, Drug intoxication, emotional upset, acute sp4 anxiety, hysteria . Data reviewed: vital signs, nurses notes, lab test result(s), urine drug screen, UPT: negative radiologic studies, plain films. ED course: Patient needs pressure bandage to the right ankle otherwise stable for discharge into police custody.. . 04/16 00:14 Order name: Urine Drug Screen; Complete Time: 02:35 sp4 04/16 00:15 Order name: Test, Urine; Complete Time: 02:35 sp4 04/16 00:14 Order name: Foot Right 3 View XRAY sp4 04/16 00:15 Order name: Ankle Right 3 View XRAY sp4 Administered Medications: 00:23 Drug: LORazepam PO 1 mg Route: PO; kl 02:21 Follow up: Response: No adverse reaction; Marked relief of symptoms kl 02:41 Drug: bandage 1 units Route: Topical; Site: affected area; kl Disposition Summary: 04/16/23 02:45 Discharge Ordered Location: Home sp4 Problem: new sp4 Symptoms: have improved sp4 Condition: Stable sp4 Diagnosis - Anxiety disorder, unspecified sp4 - Contusion of right foot sp4 Followup: sp4 - With: Private Physician - When: As needed - Reason: Discharge Instructions: - Discharge Summary Sheet sp4 - Foot Contusion, [id number] sp4 - Managing Anxiety, Adult sp4 Signatures: Dispatcher [employer] EDMS Jak, Jo Ann, RN RN kl Potepalov, Dorian, MD MD sp4
[2023-04-16 02:58] VITALS: TEMP 98.6
[2023-04-16 03:00] VITALS: O2SAT 99
[2023-04-16 03:03] VITALS: BP 112/68
--- NOTE | 2023-04-17 20:01 | RAD REPORT ---
EXAM DESCRIPTION: Foot Right 3 View CLINICAL HISTORY: Foot injury R TECHNIQUE: Three views of the right foot are submitted. COMPARISON: None available for comparison FINDINGS: Bones: No acute fracture or dislocation. Joints: Joint spaces are unremarkable. Soft tissues: No radiopaque foreign bodies. IMPRESSION: No acute fracture or dislocation of the right foot. Electronically signed by: Sergey Valencia MD 04/16/2023 2:18 AM CDT Due to temporary technical issues with the PACS/Fluency reporting system, reports are being signed by the in house radiologists without review as a courtesy to insure prompt reporting. The interpreting radiologist is fully responsible for the content of the report.
--- NOTE | 2023-04-17 20:03 | RAD REPORT ---
EXAM DESCRIPTION: Ankle Right 3 View CLINICAL HISTORY: Right ankle pain COMPARISON: None. TECHNIQUE: Right Ankle 3 Views FINDINGS: No fracture or dislocation. No significant sclerotic/lytic bone lesion. Joint spaces unremarkable. Soft tissues unremarkable. IMPRESSION: Normal Right Ankle Radiographs. Electronically signed by: Quan Hughes MD 04/16/2023 2:18 AM CDT Due to temporary technical issues with the PACS/Fluency reporting system, reports are being signed by the in house radiologists without review as a courtesy to insure prompt reporting. The interpreting radiologist is fully responsible for the content of the report.
== END 2023-04-16 02:50 | disposition home or self-care (01) ==
LOC: ER 00:04
DX: F41.9 Anxiety disorder, unspecified (principal); S90.31XA Contusion of right foot, initial encounter
CPT/HCPCS: 80307; 81025; 99284

== ENCOUNTER 2024-03-25 14:52 | Emergency (ER) | payer SELFPAY ==
--- OUTSIDE RECORDS SUMMARY | 2024-03-25 14:55 | XMS REPORT | Continuity of Care Document ---
Author Name Unknown Address [address] [place] [address] [facility] Address [address] [place] [address] Care Team Providers Care Educational Administrator Name Role Phone ARCHIE GAGE Attending Clinician FREDDY Piper Attending Clinician ARCHIE Hein Admitting Clinician Ty valdivia Payers Payer Name Policy Type Policy Number Effective Date Expirati on Date Source Allergies, Adverse Reactions, Alerts Allergy Name Allergy Type Status Severity Reaction(s) Onset Date Inactive Date Treating Clinician Comments Source morphine DA Active MO 07-30 00:00: 00 [facility] Encounters Start Date/Time End Date/Time Encounter Type Admission Type Attending Clinicians Care Facility Care Department Encounter ID Source 2024-03-23 14:21:00 2024-03-23 15:40:00 inpatient encounter [facility] [id number] 2024-03-23 14:21:00 2024-03-23 15:40:00 Inpatient ER ARCHIE GAGE [facility] [id number] [facility] 2024-03-22 14:50:00 2024-03-22 21:35:00 emergency [facility] [id number] 2024-03-22 14:50:00 2024-03-22 21:35:00 Emergency ER FREDDY [facility] [id number] [facility] Results Test Description Test Time Test Comments Results Result Co mments Source CREATINE KINASE (CK)2019-08-02 04:11:00* Test Item Value Reference Range Interpretation Comme nts CREATINE KINASE (CK) (test c ode = CK) 754 Unit/L 26-192 H CBC W/AUTO [id number] 03:59:00* Test Item Value Reference Range Interpretation Comme nts WHITE BLOOD CELL (test code = WBC) 9.1 K/mm3 3.5-11.0 N RED BLOOD CELL (test code = RBC) 3.53 M/mm3 4.70-6.10 L HEMOGLOBIN (test code = HGB) 11.2 G/DL 10.4-14.9 N HEMATOCRIT (test code = HCT) 33.7 % 31.5-44.1 N MEAN CELL VOLUME (test code = MCV) 95.5 Fl 84.5-98.6 N MEAN CELL HGB (test code = MCH) 31.7 pg 27.0-34.2 N MEAN CELL HGB CONCETRATION ( test code = MCHC) 33.2 G/DL 31.5-34.0 N RED CELL DISTRIBUTION WIDTH (test code = RDW) 13.5 SD 11.5-14.5 N PLATELET COUNT (test code = PLT) 345.0 K/mm3 150-450 N MEAN PLATELET VOLUME (test c ode = MPV) 9.20 fL 7.0-10.5 N NEUTROPHIL % (test code = NT%) 54.5 [...] K/mm3 0.0-0.1 N MANUAL DIFF REQUIRED (test c ode = MDIFF) NO DIFF/SCN CRITERIA BASIC METABOLIC [id number] 04:28:00* Test Item Value Reference Range Interpretation Comme nts SODIUM (test code = NA) 139 mmol/L 134-147 N POTASSIUM (test code = K) 4.0 mmol/L 3.4-5.0 N CHLORIDE (test code = CL) 108 mmol/L 100-108 N CARBON DIOXIDE (test code = CO2) 26 mmol/L 21-32 N ANION GAP (test code = GAP) 5.0 GAP calc 4.0-15.0 N GLUCOSE (test code = GLU) 95 MG/DL 70-110 N BLOOD UREA NITROGEN (test code = BUN) 7 MG/DL 7-18 N GLOMERULAR FILTRATION RATE (test code = GFR) >=60 max estimate estGFR >60 CREATININE (test code = CREAT) 0.7 MG/DL 0.6-1.0 N CALCIUM (test code = CA) 8.7 MG/DL 8.5-10.1 N CREATINE KINASE (CK)2019-08-01 04:28:00* Test Item Value Reference Range Interpretation Comme nts CREATINE KINASE (CK) (test c ode = CK) 1502 Unit/L 26-192 HH CBC W/AUTO [id number] 03:56:00* Test Item Value Reference Range Interpretation Comme nts WHITE BLOOD CELL (test code = WBC) 11.4 K/mm3 3.5-11.0 H RED BLOOD CELL (test code = RBC) 3.61 M/mm3 4.70-6.10 L HEMOGLOBIN (test code = HGB) 11.3 G/DL 10.4-14.9 N HEMATOCRIT (test code = HCT) 35.0 % 31.5-44.1 N MEAN CELL VOLUME (test code = MCV) 97.0 Fl 84.5-98.6 N MEAN CELL HGB (test code = MCH) 31.3 pg 27.0-34.2 N MEAN CELL HGB CONCETRATION ( test code = MCHC) 32.3 G/DL 31.5-34.0 N RED CELL DISTRIBUTION WIDTH (test code = RDW) 13.6 SD 11.5-14.5 N PLATELET COUNT (test code = PLT) 364.0 K/mm3 150-450 N MEAN PLATELET VOLUME (test c ode = MPV) 9.10 fL 7.0-10.5 N NEUTROPHIL % (test code = NT%) 58.3 [...] K/mm3 0.0-0.1 N MANUAL DIFF REQUIRED (test c ode = MDIFF) NO DIFF/SCN CRITERIA CREATINE KINASE (CK)2019-07-31 22:36:00* Test Item Value Reference Range Interpretation Comme nts CREATINE KINASE (CK) (test c ode = CK) 1566 Unit/L 26-192 HH CREATINE KINASE (CK)2019-07-31 12:47:00* Test Item Value Reference Range Interpretation Comme nts CREATINE KINASE (CK) (test c ode = CK) 1265 Unit/L -192 HH CBC W/AUTO [id number] 12:21:00* Test Item Value Reference Range Interpretation Comme nts WHITE BLOOD CELL (test code = WBC) 12.1 K/mm3 3.5-11.0 H RED BLOOD CELL (test code = RBC) 4.01 M/mm3 4.70-6.10 L HEMOGLOBIN (test code = HGB) 12.6 G/DL 10.4-14.9 N HEMATOCRIT (test code = HCT) 38.5 % 31.5-44.1 N MEAN CELL VOLUME (test code = MCV) 96.0 Fl 84.5-98.6 N MEAN CELL HGB (test code = MCH) 31.4 pg 27.0-34.2 N MEAN CELL HGB CONCETRATION ( test code = MCHC) 32.7 G/DL 31.5-34.0 N RED CELL DISTRIBUTION WIDTH (test code = RDW) 13.6 SD 11.5-14.5 N PLATELET COUNT (test code = PLT) 399.0 K/mm3 150-450 N MEAN PLATELET VOLUME (test c ode = MPV) 8.80 fL 7.0-10.5 N NEUTROPHIL % (test code = NT%) 66.1 [...] K/mm3 0.0-0.1 N MANUAL DIFF REQUIRED (test c ode = MDIFF) NO DIFF/SCN CRITERIA UA RFLX MICR CULT IF [id number] 15:29:00* Test Item Value Reference Range Interpretation Comme nts UA COLOR (test code = COLU) YELLOW discript YEL/STRAW UA APPEARANCE (test code = APPU) HAZY discript CLEAR A UA GLUCOSE DIPSTICK (test code = DGLUU) NEGATIVE mg/dL NEG UA BILIRUBIN DIPSTICK (test code = BILU) 1+ mg/dL NEG A UA KETONE DIPSTICK (test code = KETU) TRACE mg/dL NEG UA SPECIFIC GRAVITY (test code = SGU) >=1.030 SG 1.005-1.030 A UA BLOOD DIPSTICK (test code = MICHA) TRACE mg/DL NEG A UA PH DIPSTICK (test code = TAMMY) 5.5 pH UNITS 5.0-7.0 UA PROTEIN DIPSTICK (test code = PROU) 1+ mg/dL NEG A UA UROBILINIOGEN DIPSTICK (test code = URO) 0.2 mg/dL <2.0 UA NITRITE DIPSTICK (test code = RUPERT) NEGATIVE SCREEN NEG UA LEUKOCYTE ESTERASE DIPSTICK (test code = LEUU) TRACE Leuk/mcL NEGATIVE A UA WBC (test code = WBCU) 1-3 #WBC/HPF 0-3 UA RBC (test code = RBCU) 1-3 #RBC/HPF 0-3 UA BACTERIA (test code = BACU) TRACE /HPF NONE-TRACE UA SQUAMOUS CELLS (test code = SQU) TRACE /HPF NONE UA CALCIUM OXALATE CRYSTALS (test code = CAOXU) TRACE /HPF NONE SEEN A UA MUCUS (test code = MUCU) 1+ /LPF NONE SEEN UA CULTURE NEEDED? (test code = UACULT) NO, WBC<10 Criteria Culture CHK SOURCE OF URINE: CLEAN CATCHIndication for culture: Delirium-if no other src DRUGS OF ABUSE SCREEN [id number] 15:29:00* Test Item Value Reference Range Interpretation Comme nts URN COCAINE (test code = COCAURN) NEGATIVE SCcutoff <300 NG/ML URN CANNABINOIDS (test code = CANNABURN) POSITIVE SCcutoff <50 NG/ML A URN AMPHETAMINE (test code = AMPHETURN) NEGATIVE SCcutoff <1000 NG/ML URN BARBITURATE (test code = BARBITURN) NEGATIVE SCcutoff <200 NG/ML URN BENZODIAZEPINE (test code = BENZOURN) NEGATIVE SCcutoff <200 NG/ML URN OPIATES (test code = OPIATURN) NEGATIVE SCcutoff <2000 NG/ML URN PHENCYCLIDINE (PCP) (test code = PHENCURN) NEGATIVE SCcutoff <25 NG/ML URN METHADONE (test code = METHAURN) NEGATIVE SCcutoff <300 NG/ML SOURCE OF URINE: CLEAN CATCHIndication for culture: Delirium-if no other srcUA RFLX MICR CULT IF [id number] 14:54:00* Test Item Value Reference Range Interpretation Comme nts UA COLOR (test code = COLU) YELLOW discript YEL/STRAW UA APPEARANCE (test code = APPU) HAZY discript CLEAR A UA GLUCOSE DIPSTICK (test code = DGLUU) NEGATIVE mg/dL NEG UA BILIRUBIN DIPSTICK (test code = BILU) 1+ mg/dL NEG A UA KETONE DIPSTICK (test cod e = KETU) TRACE mg/dL NEG UA SPECIFIC GRAVITY (test code = SGU) >=1.030 SG 1.005-1.030 A UA BLOOD DIPSTICK (test code = MICHA) TRACE mg/DL NEG A UA PH DIPSTICK (test code = TAMMY) 5.5 pH UNITS 5.0-7.0 UA PROTEIN DIPSTICK (test code = PROU) 1+ mg/dL NEG A UA UROBILINIOGEN DIPSTICK (test code = URO) 0.2 mg/dL <2.0 UA NITRITE DIPSTICK (test code = RUPERT) NEGATIVE SCREEN NEG UA LEUKOCYTE ESTERASE DIPSTICK (test code = LEUU) TRACE Leuk/mcL NEGATIVE A UA WBC (test code = WBCU) 1-3 #WBC/HPF 0-3 UA RBC (test code = RBCU) 1-3 #RBC/HPF 0-3 UA BACTERIA (test code = BACU) TRACE /HPF NONE-TRACE UA SQUAMOUS CELLS (test code = SQU) TRACE /HPF NONE UA CALCIUM OXALATE CRYSTALS (test code = CAOXU) TRACE /HPF NONE SEEN A UA MUCUS (test code = MUCU) 1+ /LPF NONE SEEN UA CULTURE NEEDED? (test cod e = UACULT) Criteria Culture CHK SOURCE OF URINE: CLEAN CATCHIndication for culture: Delirium-if no other src DRUGS OF ABUSE SCREEN [id number] 14:54:00* Test Item Value Reference Range Interpretation Comme nts URN COCAINE (test code = COCAURN) NEGATIVE SCcutoff <300 NG/ML URN CANNABINOIDS (test code = CANNABURN) POSITIVE SCcutoff <50 NG/ML A URN AMPHETAMINE (test code = AMPHETURN) NEGATIVE SCcutoff <1000 NG/ML URN BARBITURATE (test code = BARBITURN) NEGATIVE SCcutoff <200 NG/ML URN BENZODIAZEPINE (test code = BENZOURN) NEGATIVE SCcutoff <200 NG/ML URN OPIATES (test code = OPIATURN) NEGATIVE SCcutoff <2000 NG/ML URN PHENCYCLIDINE (PCP) (test code = PHENCURN) NEGATIVE SCcutoff <25 NG/ML URN METHADONE (test code = METHAURN) NEGATIVE SCcutoff <300 NG/ML SOURCE OF URINE: CLEAN CATCHIndication for culture: Delirium-if no other src BASIC METABOLIC [id number] 14:36:00* Test Item Value Reference Range Interpretation Comme nts SODIUM (test code = NA) 139 mmol/L 134-147 N POTASSIUM (test code = K) 4.0 mmol/L 3.4-5.0 N CHLORIDE (test code = CL) 108 mmol/L 100-108 N CARBON DIOXIDE (test code = CO2) 26 mmol/L 21-32 N ANION GAP (test code = GAP) 5.0 GAP calc 4.0-15.0 N GLUCOSE (test code = GLU) 103 MG/DL 70-110 N BLOOD UREA NITROGEN (test code = BUN) 8 MG/DL 7-18 N GLOMERULAR FILTRATION RATE (test code = GFR) >=60 max estimate estGFR >60 CREATININE (test code = CREAT) 0.9 MG/DL 0.6-1.0 N CALCIUM (test code = CA) 9.3 MG/DL 8.5-10.1 N Last Dose Date: 07/17/19Last Dose Time: 1402HEPATIC FUNCTION [id number] 14:36:00* Test Item Value Reference Range Interpretation Comme nts TOTAL PROTEIN (test code = PROT) 8.3 G/DL 6.4-8.2 H ALBUMIN (test code = ALB) 4.4 G/DL 3.4-5.0 N BILIRUBIN TOTAL (test code = BILT) 0.50 MG/DL 0.2-1.2 N BILIRUBIN DIRECT (test code = BILD) 0.10 MG/DL 0.00-0.30 N BILIRUBIN INDIRECT (test cod e = BILIND) 0.40 MG/DL 0.2-1.2 N SGOT/AST (test code = AST) 32 Unit/L 15-37 N SGPT/ALT (test code = ALT) 29 Unit/L 12-78 N ALKALINE PHOSPHATASE TOTAL ( test code = ALKP) 105 Unit/L 45-117 N Last Dose Date: 07/17/19 Dose Time: REATINE KINASE (CK)2019-07-30 14:36:00* Test Item Value Reference Range Interpretation Comme nts CREATINE KINASE (CK) (test c ode = CK) 778 Unit/L 26-192 H Last Dose Date: 07/17/19 Dose Time: [id number] 14:36:00* Test Item Value Reference Range Interpretation Comme nts ACETAMINOPHEN (test code = ACET) < 2.0 mcG/ML 10.0-30.0 L Last Dose Date: 07/17/19 Dose Time: [id number] 14:36:00* Test Item Value Reference Range Interpretation Comme nts ALCOHOL (test code = ALC) < 3 MG/DL 0-10 N Last Dose Date: 07/17/19 Dose Time: [id number] 14:32:00* Test Item Value Reference Range Interpretation Comme nts SALICYLATE (test code = CANDACE) 5.7 MG/DL 2.8-20.0 THER N UA RFLX MICR CULT IF [id number] 14:32:00* Test Item Value Reference Range Interpretation Comme nts UA COLOR (test code = COLU) YELLOW discript YEL/STRAW UA APPEARANCE (test code = APPU) HAZY discript CLEAR A UA GLUCOSE DIPSTICK (test code = DGLUU) NEGATIVE mg/dL NEG UA BILIRUBIN DIPSTICK (test code = BILU) 1+ mg/dL NEG A UA KETONE DIPSTICK (test cod e = KETU) TRACE mg/dL NEG UA SPECIFIC GRAVITY (test code = SGU) >=1.030 SG 1.005-1.030 A UA BLOOD DIPSTICK (test code = MICHA) TRACE mg/DL NEG A UA PH DIPSTICK (test code = TAMMY) 5.5 pH UNITS 5.0-7.0 UA PROTEIN DIPSTICK (test code = PROU) 1+ mg/dL NEG A UA UROBILINIOGEN DIPSTICK (test code = URO) 0.2 mg/dL <2.0 UA NITRITE DIPSTICK (test code = RUPERT) NEGATIVE SCREEN NEG UA LEUKOCYTE ESTERASE DIPSTICK (test code = LEUU) TRACE Leuk/mcL NEGATIVE A UA CULTURE NEEDED? (test cod e = UACULT) Criteria Culture CHK SOURCE OF URINE: CLEAN CATCHIndication for culture: Delirium-if no other src DRUGS OF ABUSE SCREEN [id number] 14:32:00* Test Item Value Reference Range Interpretation Comme nts URN COCAINE (test code = COCAURN) NEGATIVE SCcutoff <300 NG/ML URN CANNABINOIDS (test code = CANNABURN) POSITIVE SCcutoff <50 NG/ML A URN AMPHETAMINE (test code = AMPHETURN) NEGATIVE SCcutoff <1000 NG/ML URN BARBITURATE (test code = BARBITURN) NEGATIVE SCcutoff <200 NG/ML URN BENZODIAZEPINE (test code = BENZOURN) NEGATIVE SCcutoff <200 NG/ML URN OPIATES (test code = OPIATURN) NEGATIVE SCcutoff <2000 NG/ML URN PHENCYCLIDINE (PCP) (test code = PHENCURN) NEGATIVE SCcutoff <25 NG/ML URN METHADONE (test code = METHAURN) NEGATIVE SCcutoff <300 NG/ML SOURCE OF URINE: CLEAN CATCHIndication for culture: Delirium-if no other srcUA RFLX MICR CULT IF [id number] 14:17:00* Test Item Value Reference Range Interpretation Comme nts UA COLOR (test code = COLU) YELLOW discript YEL/STRAW UA APPEARANCE (test code = APPU) HAZY discript CLEAR A UA GLUCOSE DIPSTICK (test code = DGLUU) NEGATIVE mg/dL NEG UA BILIRUBIN DIPSTICK (test code = BILU) 1+ mg/dL NEG A UA KETONE DIPSTICK (test cod e = KETU) TRACE mg/dL NEG UA SPECIFIC GRAVITY (test code = SGU) >=1.030 SG 1.005-1.030 A UA BLOOD DIPSTICK (test code = MICHA) TRACE mg/DL NEG A UA PH DIPSTICK (test code = TAMMY) 5.5 pH UNITS 5.0-7.0 UA PROTEIN DIPSTICK (test code = PROU) 1+ mg/dL NEG A UA UROBILINIOGEN DIPSTICK (test code = URO) 0.2 mg/dL <2.0 UA NITRITE DIPSTICK (test code = RUPERT) NEGATIVE SCREEN NEG UA LEUKOCYTE ESTERASE DIPSTICK (test code = LEUU) TRACE Leuk/mcL NEGATIVE A UA CULTURE NEEDED? (test cod e = UACULT) Criteria Culture CHK SOURCE OF URINE: CLEAN CATCHIndication for culture: Delirium-if no other src DRUGS OF ABUSE SCREEN [id number] 14:17:00* Test Item Value Reference Range Interpretation Comme nts URN COCAINE (test code = COCAURN) SCcutoff <300 NG/ML URN CANNABINOIDS (test code = CANNABURN) SCcutoff <50 NG/ML URN AMPHETAMINE (test code = AMPHETURN) SCcutoff <1000 NG/ML URN BARBITURATE (test code = BARBITURN) SCcutoff <200 NG/ML URN BENZODIAZEPINE (test cod e = BENZOURN) SCcutoff <200 NG/ML URN OPIATES (test code = OPIATURN) SCcutoff <2000 NG/ML URN PHENCYCLIDINE (PCP) (ty t code = PHENCURN) SCcutoff <25 NG/ML URN METHADONE (test code = METHAURN) SCcutoff <300 NG/ML SOURCE OF URINE: CLEAN CATCHIndication for culture: Delirium-if no other srcCBC W/AUTO [id number] 14:16:00* Test Item Value Reference Range Interpretation Comme nts WHITE BLOOD CELL (test code = WBC) 15.7 K/mm3 3.5-11.0 H RED BLOOD CELL (test code = RBC) 4.08 M/mm3 4.70-6.10 L HEMOGLOBIN (test code = HGB) 13.0 G/DL 10.4-14.9 N HEMATOCRIT (test code = HCT) 39.0 % 31.5-44.1 N MEAN CELL VOLUME (test code = MCV) 95.6 Fl 84.5-98.6 N MEAN CELL HGB (test code = MCH) 31.9 pg 27.0-34.2 N MEAN CELL HGB CONCETRATION ( test code = MCHC) 33.3 G/DL 31.5-34.0 N RED CELL DISTRIBUTION WIDTH (test code = RDW) 13.7 SD 11.5-14.5 N PLATELET COUNT (test code = PLT) 450.0 K/mm3 150-450 N MEAN PLATELET VOLUME (test c ode = MPV) 8.90 fL 7.0-10.5 N NEUTROPHIL % (test code = NT%) 79.0 [...] K/mm3 0.0-0.1 N MANUAL DIFF REQUIRED (test c ode = MDIFF) NO DIFF/SCN CRITERIA Notes Date/Time Note Provider Source 2019-08-18 16:21:00 [id number] 1+QSlyyEvzWaUtq9iAZS2Mwc6rQKz MorO2uz5pV58ANf3XdYZx49gginBUJRWzU3548-71-79O56:2 1:00 [facility] ([facility])Hospitalist Discharge SummaryREPORT#:[id number] REPORT STATUS: SignedDATE:08/18/19 TIME:162 PATIENT: JIE MA UNIT #: [id number]#: [id number] [facility] AGE: 24 SEX: F ATTEND: Lauro Preciado AUTHOR: Sylvie Powell MD * ALL edits or amendments must be made on the electronic/computer document * PCP PCPDischarge to: home General InformationDate of admission:Observation Start Date: Date of admission: 07/31/19 Discharge date: 08/02/19Hospital course:Suicidal indeation on EDORhabdomyolysisSubstance abuse, +cannabinoids on UDSHx of schizophrenia HOSPITAL COURSESuicide precautions, 1:1 sitter IV hydration Has been evaluated by HCAT with recs for involuntary inpatient psych admissionPt counseled on drug cessation Pt. condition on discharge: stableAllergies:Allergies:morphine (Coded, Intermediate, AGITATION, 07/30/19) Med Rec Med RecDischarge meds:Continue taking these medications:DIAZEPAM (VALIUM) 2 MG TAB 10 MILLIGRAM ORAL QD PRN as needed for ANXIETY Discharge InstructionsDiet: regularActivity: as tolerated Follow-up AppointmentsPCP: Follow up timeframe: In 1-2 weeks Objective Physical ExamGeneral appearance: alert, awake, orientedHead/Eyes: atraumatic, normocephalicENT: dry mucosal membrane, poor dentitionCardiovascular: normal capillary refill, normal heart sounds, regular rate rhythmRespiratory: clear to auscultation, symmetric expansion, no distressAbdomen: non-tender, soft, no distentionExtremities: moves all, no edemaNeuro/DRY STARCH OPERATOR: alert, normal speech Quality MedicationsCurrent medication review:I attest that the foregoing medication list in the medical record is true, accurate, and complete to the best of my knowledge. at 1623 RPT #: [id number] OF REPORT DSDischarge thkzlfq3220-72-72K87:21:00L.NBUR42261589-9331UXMy ailable for patient vlegDAQZZKHLEZPRYX0906-16-92O26:23:47 [facility] 2019-08-02 10:31:00 [id number] bTIE1fj5B9WoQnFj+7dst9ZBLul3+ YWIiWmv/r4aBNSdot2sSOQSpgkNyGmgk+I2761-13-77F30:3 1:00 [facility] Progress NoteREPORT#:[id number] REPORT STATUS: SignedDATE:08/02/19 TIME:1031 PATIENT: JIE MA UNIT #: [id number]#: [id number] [address] AGE: 24 SEX: F ATTEND: Lauro Preciado [facility] AUTHOR: Slyvie Powell MD * ALL edits or amendments must be made on the electronic/computer document * Objective GeneralVS/I O:Vital Signs: Date Time Temp Pulse Resp B/P B/P Pulse O2 O2 Flow FiO2 Mean Ox Delivery Rate 08/02 0702 [...] (lb): Weight (oz): Weight (kg): 52.273 Physical ExamGeneral appearance: alert, awakeHead/Eyes: atraumatic, normocephalicENT: dry mucosal membrane, poor dentitionCardiovascular: normal capillary refill, normal heart sounds, regular rate rhythmRespiratory: clear to auscultation, symmetric expansion, no distressAbdomen: non-tender, soft, no distentionExtremities: moves all, no edemaNeuro/DRY STARCH OPERATOR: alert, normal speechPsychiatry: agitated, mild pressured speech but redirectable. Denies any SI/HI/AVH currently. Diagnosis, Assessment Plan Free Text DxA P NotesFree Text DxA P Notes:Suicidal indeation on EDORhabdomyolysisSubstance abuse, +cannabinoids on UDSHx of schizophrenia PlanSuicide precautions, 1:1 sitter IV hydration Has been evaluated by HCAT with recs for involuntary inpatient psych admissionPt counseled on drug cessation medically cleared to be discharged to inpatient psych unit at 1032 RPT #: [id number] OF REPORT PRProgress Acbn1927-42-47V85:31:00L.BWDK52079428-2837GUTpbtp able for patient ahliUPCXIGRGRJIPJJ7854-96-50K30:32:51 [facility] 2019-08-01 10:57:00 [id number] f03KUpnrGl1Sd506ZNSAjKyZ3P0ov 1dpvqUc9459RP2e9JZhgm3Lu5IMYBXpVcw6914-47-41G51:5 7:00 [facility]ospital[facility] Progress NoteREPORT#:[id number] REPORT STATUS: SignedDATE:08/01/19 TIME:1057 PATIENT: JIE MA UNIT #: [id number]#: [id number] [address] AGE: 24 SEX: F ATTEND: Lauro Preciado [facility] AUTHOR: Sylvie Powell MD * ALL edits or amendments must be made on the electronic/computer document * Objective Physical ExamGeneral appearance: awakeHead/Eyes: atraumatic, normocephalicENT: dry mucosal membrane, poor dentitionCardiovascular: normal capillary refill, normal heart sounds, regular rate rhythmRespiratory: clear to auscultation, symmetric expansion, no distressAbdomen: non-tender, soft, no distentionExtremities: moves all, no edemaNeuro/DRY STARCH OPERATOR: alert, normal speechPsychiatry: agitated, mild pressured speech but redirectable. Denies any SI/HI/AVH currently. Diagnosis, Assessment Plan Free Text DxA P NotesFree Text DxA P Notes:Suicidal indeation on EDORhabdomyolysisSubstance abuse, +cannabinoids on UDSHx of schizophrenia PlanSuicide precautions, 1:1 sitterCPK still high continue with IV hydrationWill repeat BMP, CK in AMHas been evaluated by HCAT with recs for involuntary inpatient psych admissionPt counseled on drug cessation Still not medically cleared to be discharged to inpatient psych unit at 1058 RPT #: [id number] OF REPORT PRProgress Ugjz2493-47-49U13:57:00L.KKBW96150482-8158EAXxavj able for patient oxguZMPROICKBTGZJK1762-56-62W16:58:37 [facility] 2019-08-01 00:10:00 [id number] vFMqpN8SzxGIHd2frby2gX3D4ZWjz 3C00zi0yA98nHFNURkiqJBXj3sVLlhojQa9753-27-74Y41:1 0:00 [facility] ([facility])Hospitalist History PhysicalREPORT#:[id number] REPORT STATUS: SignedDATE:08/01/19 TIME:0010 PATIENT: JIE MA UNIT #: [id number]#: [id number] [address] AGE: 24 SEX: F ATTEND: Lauro Preciado MDADM AUTHOR: Sheila Richards * ALL edits or amendments must be made on the electronic/computer document * History of Present Illness HPIChief complaint:SI Free Text HPI NotesFree Text HPI Notes:24 y/o female with hx of schizophrenia was BIB police under ANUP[facility] to the ER yesterday for SI x10 days. Per report, the police dept had received multiple phone calls about pt c/o SI but would deny SI when they arrived on scene. Pt wasinitially medically cleared being observed in the ER and has been evaluated by [facility] who recommended involuntary inpatient psych admission. Pt is pending placement, but was noted to have uptrending CK levels 778 -> 1265 -> 1566 in theER and subsequently admitted for further management. Pt currently denies any SI/HI/AVH. Appears somewhat agitated but redirectable, denies any complaints currently. HistoryPast medical history:Reports: Schizophrenia. Additional medical history:schizophreniaSmoking status for patients 13 years old or older: Current every day smokerOther social history: Local resident Medication/Allergy-Vaccine HxHome Medications:DIAZEPAM (VALIUM) 10 MG PO QD PRN PRN ANXIETY Allergies:Coded Allergies:morphine (Intermediate, AGITATION 07/30/19) Ambulatory status: Independent Review of SystemsConstitutional:Denies: chills, fever. Skin:Denies: bruising, rash. Eyes:Denies: visual loss/blurred, eye pain. ENT:Denies: nasal congestion, sore throat. Respiratory:Denies: productive cough (sputum), SOB. Cardiovascular:Denies: chest pain, palpitations. GI:Denies: abdominal pain, nausea, vomiting. Musculoskeletal:Denies: extremity pain, extremity swelling. Neuro:Denies: dizziness, headache. Psych:Reports: agitation, anxiety. Denies: homicidal ideation, suicidal ideation. Objective GeneralVS/I O:Vital Signs: Date Time Temp Pulse Resp B/P B/P Pulse O2 O2 Flow FiO2 Mean Ox Delivery Rate 07/31 2353 37.1 65 18 109/69 82.3 100 07/31 2203 36.8 93 18 118/80 92 99 07/31 1200 36.6 67 16 110/63 78 100 Room air 07/31 0725 36.8 83 16 111/62 78 100 Room air 07/31 0400 36.9 70 16 113/70 84 100 Patient Weight Weight (lb): Weight (oz): Weight (kg): 52.273 Physical ExamGeneral appearance: alert, awake, no acute distressHead/Eyes: atraumatic, normocephalicENT: dry mucosal membrane, poor dentitionCardiovascular: normal capillary refill, normal heart sounds, regular rate rhythmRespiratory: clear to auscultation, symmetric expansion, no distressAbdomen: non-tender, soft, no distentionExtremities: moves all, no edemaNeuro/DRY STARCH OPERATOR: alert, normal speechPsychiatry: agitated, mild pressured speech but redirectable. Denies any SI/HI/AVH currently. ResultsFindings/Data:Laboratory Tests 07/31 07/31 2155 1207 Chemistry Total [...] % (Auto) (20.5 - 51.1 %) 27.0 Walsh % (Auto) (1.7 - 9.3 %) 6.0 Eos % (Auto) (0.0 - 6.0 %) 0.7 Baso % (Auto) (0.0 - 2.0 %) 0.2 Neut # (Auto) (1.8 - 7.6 K/mm3) 7.98 H Lymph # (Auto) (0.6 - 3.2 K/mm3) 3.3 H Walsh # (Auto) (0.3 - 1.1 K/mm3) 0.7 Eos # (Auto) (0.0 - 0.4 K/mm3) 0.1 Baso # (Auto) (0.0 - 0.1 K/mm3) 0.0 Add Manual Diff (CRITERIA DIFF/SCN) NO Diagnosis, Assessment PlanProblem List/A P: 1. Suicidal ideation 2. Rhabdomyolysis 3. Substance abuse Free Text DxA P NotesFree Text DxA P Notes:Suicidal indeation on EDORhabdomyolysisSubstance abuse, +cannabinoids on UDSHx of schizophrenia PlanSuicide precautions, 1:1 sitterGiven NS IVF in ER but CK trended up 778 -> 1566, will switch to LR 150cc/hrWill repeat BMP, CK in AMHas been evaluated by HCAT with recs for involuntary inpatient psych admissionPending medical clearance and psych placementPt counseled on drug cessation at 0033 RPT #: [id number] OF REPORT HPHistory and physical [id number]:10:00L.[id number] AVAvailable for patient [id number]:33:56 [facility] 2019-08-01 00:10:00 [id number]+G [id number]:1 0:00 [facility] ([facility])Hospitalist History PhysicalREPORT#:[id number] REPORT STATUS: SignedDATE:08/01/19 TIME:0010 PATIENT: JIE MA UNIT #: [id number]#: [id number] [address] AGE: 24 SEX: F ATTEND: Lauro Preciado MDA AUTHOR: Sheila Richards * ALL edits or amendments must be made on the electronic/computer document * Sheila Richards 08/01/19 0010:History of Present Illness HPIChief complaint:SI Free Text HPI NotesFree Text HPI Notes:24 y/o female with hx of schizophrenia was BIB police under ANUP[place] to the ER yesterday for SI x10 days. Per report, the police dept had received multiple phone calls about pt c/o SI but would deny SI when they arrived on scene. Pt wasinitially medically cleared being observed in the ER and has been evaluated by HCAT who recommended involuntary inpatient psych admission. Pt is pending placement, but was noted to have uptrending CK levels 778 -> 1265 -> 1566 in theER and subsequently admitted for further management. Pt currently denies any SI/HI/AVH. Appears somewhat agitated but redirectable, denies any complaints currently. HistoryPast medical history:Reports: Schizophrenia. Additional medical history:schizophreniaSmoking status for patients 13 years old or older: Current every day smokerOther social history: Local resident Medication/Allergy-Vaccine HxHome Medications:DIAZEPAM (VALIUM) 10 MG PO QD PRN PRN ANXIETY Allergies:Coded Allergies:morphine (Intermediate, AGITATION 07/30/19) Ambulatory status: Independent Review of SystemsConstitutional:Denies: chills, fever. Skin:Denies: bruising, rash. Eyes:Denies: visual loss/blurred, eye pain. ENT:Denies: nasal congestion, sore throat. Respiratory:Denies: productive cough (sputum), SOB. Cardiovascular:Denies: chest pain, palpitations. GI:Denies: abdominal pain, nausea, vomiting. Musculoskeletal:Denies: extremity pain, extremity swelling. Neuro:Denies: dizziness, headache. Psych:Reports: agitation, anxiety. Denies: homicidal ideation, suicidal ideation. Objective GeneralVS/I O:Vital Signs: Date Time Temp Pulse Resp B/P B/P Pulse O2 O2 Flow FiO2 Mean Ox Delivery Rate 07/31 2353 37.1 65 18 109/69 82.3 100 07/31 2203 36.8 93 18 118/80 92 99 07/31 1200 36.6 67 16 110/63 78 100 Room air 07/31 0725 36.8 83 16 111/62 78 100 Room air 07/31 0400 36.9 70 16 113/70 84 100 Patient Weight Weight (lb): Weight (oz): Weight (kg): 52.273 Physical ExamGeneral appearance: alert, awake, no acute distressHead/Eyes: atraumatic, normocephalicENT: dry mucosal membrane, poor dentitionCardiovascular: normal capillary refill, normal heart sounds, regular rate rhythmRespiratory: clear to auscultation, symmetric expansion, no distressAbdomen: non-tender, soft, no distentionExtremities: moves all, no edemaNeuro/DRY STARCH OPERATOR: alert, normal speechPsychiatry: agitated, mild pressured speech but redirectable. Denies any SI/HI/AVH currently. ResultsFindings/Data:Laboratory Tests 07/31 07/31 2155 1207 Chemistry Total [...] % (Auto) (20.5 - 51.1 %) 27.0 Walsh % (Auto) (1.7 - 9.3 %) 6.0 Eos % (Auto) (0.0 - 6.0 %) 0.7 Baso % (Auto) (0.0 - 2.0 %) 0.2 Neut # (Auto) (1.8 - 7.6 K/mm3) 7.98 H Lymph # (Auto) (0.6 - 3.2 K/mm3) 3.3 H Walsh # (Auto) (0.3 - 1.1 K/mm3) 0.7 Eos # (Auto) (0.0 - 0.4 K/mm3) 0.1 Baso # (Auto) (0.0 - 0.1 K/mm3) 0.0 Add Manual Diff (CRITERIA DIFF/SCN) NO Diagnosis, Assessment PlanProblem List/A P: 1. Suicidal ideation 2. Rhabdomyolysis 3. Substance abuse Free Text DxA P NotesFree Text DxA P Notes:Suicidal indeation on EDORhabdomyolysisSubstance abuse, +cannabinoids on UDSHx of schizophrenia PlanSuicide precautions, 1:1 sitterGiven NS IVF in ER but CK trended up 778 -> 1566, will switch to LR 150cc/hrWill repeat BMP, CK in AMHas been evaluated by HCAT with recs for involuntary inpatient psych admissionPending medical clearance and psych placementPt counseled on drug cessation at 0033 at 1244 RPT #: [id number] OF REPORT HPHistory and physical [id number]:10:00L.[id number] AVAvailable for patient [id number]:44:51 HCAPM
--- NOTE | 2024-03-25 15:14 | EDPHYS ---
Physician Documentation [facility] Name: Charo Flood Age: 29 yrs Sex: Female : 1995 Arrival Date: 03/25/2024 Time: 14:52 Bed 18 Private MD: ED Physician Zeb Helm HPI: 03/25 21:24 This 29 yrs old Female presents to ER via Ambulatory with complaints of Abdominal Pain, kb Pelvic Pain. 21:24 Pt is a 29 year old female who presents with lower abd pain that started last week. kb States she was seen at [place] [facility] a few days ago and told she has an ovarian mass that she needed to have removed so she came here today to have that done. Denies n/v/d, fever. 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 - Infectious Disease History:: Denies. - Social history:: Smoking status: Patient reports the use of cigarette tobacco products, smokes one-half pack cigarettes per day, Patient uses alcohol, occasionally. ROS: 21:25 Constitutional: As per HPI kb Exam: 21:25 Constitutional: This is a well developed, well nourished patient who is awake, alert, kb and in no acute distress. Head/Face: Normocephalic, atraumatic. ENT: Moist Mucous membranes Cardiovascular: Regular rate Respiratory: Respirations even and unlabored. No increased work of breathing. Talking in full sentences Skin: Warm, dry with normal turgor. Normal color. MS/ Extremity: Pulses equal, no cyanosis. Neurovascular intact. Full, normal range of motion. Neuro: Awake and alert, GCS 15, oriented to person, place, time, and situation. Moves all extremities. Normal gait. 21:25 Abdomen/GI: Inspection: abdomen appears normal, Bowel sounds: normal, Palpation: soft, in all quadrants, mild abdominal tenderness, in the right lower quadrant and left lower quadrant, Vital Signs: 14:58 BP 126 / 82; Pulse 108; Resp 18 S; Temp 97.8(O); Pulse Ox 97% on R/A; Weight 49.9 kg as6 (R); Height 5 ft. 2 in. (R); Pain 5/10; 14:58 Body Mass Index 20.12 (49.90 kg, 157.48 cm) as6 14:58 Pain Scale: Adult as6 MDM: 14:56 Patient medically screened. kb 21:25 Differential diagnosis: non-specific abd pain, ovarian cyst, mass. Data reviewed: vital kb signs, nurses notes. Test considered but Not performed: Ultrasound transvaginal US considered but pt states she prefers to go to a facility that has STAFF OCCUPATIONAL THERAPIST services to have everything done. ED course: Discussed plan for serum and urinary labs as well as transvaginal US to evaluate complaint. Pt informed that if there is a surgical issue involving the ovary we would have to transfer her to a facility with STAFF OCCUPATIONAL THERAPIST services. Pt states she did not know we did not have those services so she would rather leave and have everything completed at a facility that does. . Administered Medications: No medications were administered Disposition Summary: 03/25/24 15:16 Left Against Medical Advice Notes: Location: Home(03/25/24 15:16) kb Problem: new kb Symptoms: are unchanged kb Condition: Stable(03/25/24 15:16) kb Diagnosis - Lower abdominal pain, unspecified(03/25/24 15:16) kb Followup: kb - With: Emergency Department - When: As needed - Reason: Worsening of condition Followup: kb - With: Private Physician - When: 2 - 3 days - Reason: Recheck today's complaints, Continuance of care, Re-evaluation by your physician Addendum: 03/29/2024 09:33 Co-signature as Attending Physician, Zeb Helm MD I reviewed the patient's care r t provided by the Advanced Practice Provider and agree with the diagnosis and treatment plan. Signatures: Chichi Garcia, SOPHIA-C SOPHIA-All Weathers RN RN as6 Zeb Helm MD MD rt Corrections: (The following items were deleted from the chart) 03/25 15:16 15:14 Home kb kb 15:16 15:14 Stable kb kb 15:16 15:14 Lower abdominal pain, unspecified kb kb
--- NOTE | 2024-03-25 15:14 | ER ---
Nurse's Notes [facility] Name: Charo Flood Age: 29 yrs Sex: Female : 1995 Arrival Date: 03/25/2024 Time: 14:52 Bed 18 Private MD: Diagnosis: Lower abdominal pain, unspecified Presentation: 03/25 14:59 Chief complaint: Patient states: pt was told she has a large ovarian cyst to her left as6 ovary and is having abdominal pain. Coronavirus screen: At this time, the client does not indicate any symptoms associated with coronavirus-19. Ebola Screen: No symptoms or risks identified at this time. Initial Sepsis Screen: Does the patient meet any 2 criteria? No. Patient's initial sepsis screen is negative. Does the patient have a suspected source of infection? No. Patient's initial sepsis screen is negative. Risk Assessment: Do you want to hurt yourself or someone else? Patient reports no desire to harm self or others. Onset of symptoms was March 25, 2024. 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 - Infectious Disease History:: Denies. - Social history:: Smoking status: Patient reports the use of cigarette tobacco products, smokes one-half pack cigarettes per day, Patient uses alcohol, occasionally. Screenin:20 [facility] ED Fall Risk Assessment (Adult) History of falling in the last 3 months, tl4 including since admission No falls in past 3 months (0 pts) Confusion or Disorientation No (0 pts) Intoxicated or Sedated No (0 pts) Impaired Gait No (0 pts) Mobility Assist Device Used No (0 pt) Altered Elimination No (0 pt) Score/Fall Risk Level 0 - 2 = Low Risk Oriented to surroundings, Maintained a safe environment, Educated pt \T\ family on fall prevention, incl call for assistance when getting out of bed, Assessed \T\ reinforced patient's understanding of fall precautions. Abuse screen: Denies threats or abuse. Denies injuries from another. Nutritional screening: No deficits noted. Tuberculosis screening: No symptoms or risk factors identified. Assessment: 15:19 General: Appears uncomfortable, Behavior is calm, cooperative. Pain: Complains of pain tl4 in abdomen. Neuro: Level of Consciousness is awake, alert, obeys commands, Oriented to person, place, time, situation, Moves all extremities. Full function Gait is steady, Speech is normal. Cardiovascular: Capillary refill < 3 seconds Patient's skin is warm and dry. Respiratory: Airway is patent Respiratory effort is even, unlabored, Respiratory pattern is regular, symmetrical, Breath sounds are clear bilaterally. GI: Bowel sounds present X 4 quads. Abd is soft X 4 quads Abdomen is tender to palpation in left lower quadrant. : No signs and/or symptoms were reported regarding the genitourinary system. EENT: No signs and/or symptoms were reported regarding the EENT system. Derm: No signs and/or symptoms reported regarding the dermatologic system. Musculoskeletal: No signs and/or symptoms reported regarding the musculoskeletal system. 15:21 Reassessment: Pt states she does not want to stay for treatment. Pt states she is going tl4 to [facility]. Pt informed we can perform tests within our capabilities and transfer her to an appropriate facility if necessary. Pt informed she could experience further issues up to and including . Pt acknowledges the risks of signing out AMA. Pt refuses to sign AMA form. Provider Chichi CORTES aware. Vital Signs: 14:58 BP 126 / 82; Pulse 108; Resp 18 S; Temp 97.8(O); Pulse Ox 97% on R/A; Weight 49.9 kg as6 (R); Height 5 ft. 2 in. (R); Pain 5/10; 14:58 Body Mass Index 20.12 (49.90 kg, 157.48 cm) as6 14:58 Pain Scale: Adult as6 ED Course: 14:55 Patient arrived in ED. im 14:56 Chichi Garcia FNP-C is PHCP. kb 14:56 Zeb Helm MD is Attending Physician. kb 14:59 Arm band placed on right wrist. as6 15:00 Triage completed. as6 15:12 Tito Main, ANDERSON is Primary Nurse. tl4 15:21 Patient has correct armband on for positive identification. Bed in low position. Call tl4 light in reach. Provided Education on: ED process, call bianchi. 15:21 No provider procedures requiring assistance completed. Patient did not have IV access tl4 during this emergency room visit. Administered Medications: No medications were administered Medication: 15:20 VIS not applicable for this client. tl4 Outcome: 15:14 Discharge ordered by . ranjan 15:27 AMA Left before signing form, tl4 15:27 unknown 15:27 Instructed on need for further evaluation 15:28 Patient left the ED. tl4 Signatures: Chichi Garcia, SOPHIA-C SOPHIA-All Weathers, RN RN as6 Laurita Gutierrez Toni, RN RN tl4
[2024-03-25 15:49] VITALS: BP 126/82; TEMP 97.8; O2SAT 97
== END 2024-03-25 15:28 | disposition left against medical advice (07) ==
LOC: ER 14:52
DX: R10.32 Left lower quadrant pain (principal); R10.31 Right lower quadrant pain
CPT/HCPCS: 99282